=== PATIENT | female | born 1985 | race Caucasian/White ===

== ENCOUNTER → 2018-02-25 18:01 | Outpatient (CLI) | payer OTHER, SELFPAY ==
[2018-02-25 22:58] LABS: Chlamydia Trachomatis by PCR Negative (Negative); Neisserai gonorrhoeae by PCR Negative (Negative); Probe Check PASS; Sample Adequacy Control PASS; Specimen Processing Control PASS
== END ==
PROVIDERS: Visit Provider Obstetrics & Gynecology
DX: Z11.3 Encounter for screening for infections with a predominantly sexual mode of transmission (principal)
CPT/HCPCS: 87491; 87591

== ENCOUNTER → 2018-04-07 09:54 | Outpatient (CLI) | payer OTHER, SELFPAY ==
[2018-04-07 10:49] LABS: Color, Urine Yellow (Yellow); Glucose, Dipstick Normal (Normal); Ketone-Dipstick Negative (Negative); Leukocyte Esterase-Dipstick 25 /ul (Negative); Nitrite-Dipstick Negative (Negative); Occult Blood-Urine 10 /ul (Negative); Protein-Dipstick Negative (Negative); Specific Gravity, Urine 1.015 (1.002-1.030); Urine Bilirubin Dipstick Negative (Negative); Urine Clarity Sl. Cloudy (Clear); Urine Urobilinogen Normal (Normal)
[2018-04-07 11:06] LABS: Amphetamine Urine VISTA NEGATIVE (<1000 ng/mL); Barbiturate Urine VISTA NEGATIVE (< 200 ng/mL); Benzodiazepine Urine VISTA NEGATIVE (< 200 ng/mL); Cocaine Urine VISTA NEGATIVE (< 300 ng/mL); Ecstacy Urine VISTA NEGATIVE (< 500 ng/mL); Methadone Urine VISTA NEGATIVE (< 300 ng/mL); PCP Urine VISTA NEGATIVE (< 25 ng/mL); THC Urine VISTA NEGATIVE (< 50 ng/mL); Vista UDS pH Range 7
[2018-04-07 14:24] LABS: COTININE Drug Screen Negative (<200 ng/mL)
[2018-04-07 15:42] LABS: Absolute Lymphocyte Count 1.38 X10^3/ul (0.83-4.51); Absolute Neutrophil Count 5.3 X10^3/uL (2.0-7.7); Basophil# 0.04 X10^3/uL; Basophil% 0.5 % (0-1); Eosinophil# 0.14 X10^3/uL; Eosinophils% 1.9 % (0-5); Lymphocyte # 1.38 X10^3/ul (4.0); Lymphocyte % 18.4 % (19-41); Mean Corp Hgb Conc 33.3 g/gl (32-36); Mean Corpuscular Volume 87.1 fL (81-99); Mean Platelet Vol. 10.8 fl (6.2-12.0); Monocyte# 0.66 X10^3/uL; Monocyte% 8.8 % (0-10); Neutrophil # 5.28 X10^3/uL (2.7-7.7); Neutrophil % 70.3 % (47-70); Platelet Count 175 K/mm3 (150-450); RBC Distribution Width CV 13.5 % (11.6-14.6); RBC Distribution Width SD 41.8 fl (35.1-43.9); Red Blood Count 4.82 M/mm3 (4.2-5.4); White Blood Count 7.5 K/mm3 (4.4-11.0)
[2018-04-07 15:43] LABS: POSITIVE COUNT NO; POSITIVE DIFFERENTIAL NO; POSITIVE MORPHOLOGY NO
[2018-04-07 16:48] LABS: HIV - WCH Non-Reactive (Nonreactive); Rubella IgG 81.6 IU/mL
[2018-04-09 03:58] LABS: Prenatal RPR NONREACTIVE (NONREACTIVE)
[2018-04-09 13:42] LABS: HEPATITIS B SURFACE AG Negative (Negative); Hep C Antibodies 0.1 s/co ratio (0.0-0.9)
== END ==
PROVIDERS: Visit Provider Obstetrics & Gynecology
DX: Z34.82 Encounter for supervision of other normal pregnancy, second trimester (principal)
CPT/HCPCS: 36415; 80307; 81002; 84443; 85025; 86703; 86762; 86803; 87340

== ENCOUNTER → 2018-07-05 16:22 | Outpatient (CLI) | payer OTHER, SELFPAY ==
[2018-07-05 18:06] LABS: Hematocrit 35.3 % (37-47); Hemoglobin 11.7 g/dl (12.0-15.0); Mean Corp Hgb Conc 33.1 g/gl (32-36); Mean Corpuscular Hgb 29.5 pg (27.0-32.0); Mean Corpuscular Volume 88.9 fL (81-99); Platelet Count 178 K/mm3 (150-450); RBC Distribution Width SD 41.6 fl (35.1-43.9); Red Blood Count 3.97 M/mm3 (4.2-5.4); White Blood Count 8.1 K/mm3 (4.4-11.0)
[2018-07-05 18:09] LABS: Glucose Challenge Gest 1H 50g 154 mg/dL (70-140)
[2018-07-05 18:24] LABS: Scan Indicated on CBC? Y/N NO
== END ==
PROVIDERS: Visit Provider Obstetrics & Gynecology
DX: Z34.83 Encounter for supervision of other normal pregnancy, third trimester (principal)
CPT/HCPCS: 36415; 82950; 85027

== ENCOUNTER → 2018-07-13 07:05 | Outpatient (CLI) | payer OTHER, SELFPAY ==
[2018-07-13 09:24] LABS: Glucose GTT-Gestation. Fasting 69 mg/dL (<105)
[2018-07-13 09:29] LABS: Glucose GTT-Gestational 1 Hr 151 mg/dL (<190)
[2018-07-13 11:21] LABS: Glucose GTT-Gestational 3 Hr 93 L (<145)
[2018-07-13 11:21] LABS: Glucose GTT-Gestational 2 Hr 133 mg/dL (<165)
--- OUTSIDE RECORDS SUMMARY | 2018-08-24 19:53 | XMS RPT_ITS ---
:1985 Author Organization OHIP Care Team Providers Name Role Phone Prince Adams Attending Unavailable Prince Adams Referring Unavailable Prince Adams Attending Unavailable Prince Adams Attending Unavailable Prince Adams Attending Unavailable Prince Adams Referring Unavailable Primay Care Physicia, No Primary Care Unavailable PROBLEMS PROBLEMS DATE TYPE CONDITION / CODE ATTENDING STATUS SOURCE 07/05/2018 Unknown Z34.83 - Encounter Prince Adams for supervision of Community other normal Hospital , third Repository trimester / Z34.83(ICD-10) 04/07/2018 Unknown Z34.82 - Encounter Prince Adams for supervision of Community other normal Hospital , second Repository trimester / Z34.82(ICD-10) 02/26/2018 Unknown Z11.3 - Encounter Prince Adams for screening for Community infections with a Hospital predominantly Repository sexual mode of transmission / Z11.3(ICD-10) PROCEDURES PROCEDURES No Procedure Records FoundRESULTS RESULTS GESTATIONAL GTT 3HR Collected: 07/13/2018 Status: F Source: [place] 100G 7:15 AM [facility] [place] Order Comment: Is Patient Fasting? Y TYPE CODE TESTS RESULT OUT OF RANGE REFERENCE UNITS LAB L501.0650 <105 mg/dL Normal GLU 69 GTT-FASTING Result Comment: GLUCOSE TOLERANCE TEST FOR Reference Interval GESTATIONAL DIABETES Fasting <105 mg/dL 1 hour <190 mg/dl 2 hour <165 mg/dl 3 hour <145 mg/dl LAB L501.0660 <190 mg/dL Normal GLU GTT- 1HR 151 LAB L501.0670 <165 mg/dL Normal GLU GTT- 2HR 133 LAB L501.0680 <145 L Normal GLU GTT- 3HR 93 Performed By: #### L500.4710 #### [facility] [address] [place], [address] GLUCOSE CHALLENGE GEST Collected: 07/05/2018 Status: F Source: [place] 1H 50G 4:20 PM [facility] [place] TYPE CODE TESTS RESULT OUT OF RANGE REFERENCE UNITS LAB L501.0250 70-140 mg/dL High GLU GEST 154 50g 1H Performed By: #### L501.0250 #### [facility] [address] [place], [address] CBC-COMPLETE BLOOD CNT Collected: 07/05/2018 Status: F Source: [place] NO DIFF 4:20 PM [facility] [place] [facility] TYPE CODE TESTS RESULT OUT OF RANGE REFERENCE UNITS LAB L100.1000 4.4-11.0 K/mm3 Normal WBC 8.1 LAB L100.1200 4.2-5.4 M/mm3 Low RBC 3.97 LAB L100.1300 12.0-15.0 g/dl Low HGB 11.7 LAB L100.1400 37-47 % Low HCT 35.3 LAB L100.1500 81-99 fL Normal MCV 88.9 LAB L100.1600 27.0-32.0 pg Normal MCH 29.5 LAB L100.1700 32-36 g/gl Normal MCHC 33.1 LAB L100.1810 11.6-14.6 % Normal RDW CV 13.0 LAB L100.1820 35.1-43.9 fl Normal RDW SD 41.6 LAB L100.1900 150-450 K/mm3 Normal PLT 178 LAB L100.2000 6.2-12.0 fl Normal MPV 11.0 Performed By: #### L100.0500 #### [facility] [address] [place], [place], [id number] URINE DRUG SCREEN Collected: 04/07/2018 Status: F Source: [place] (VISTA) 9:56 AM [facility] [place] [facility] Order Comment: List of Drugs Taken or Suspected? UNK TYPE CODE TESTS RESULT OUT OF RANGE REFERENCE UNITS LAB L505.0075 TO BE Normal CONFIRMED Result Comment: CONFIRMATORY TESTING FOR ALL POSITIVE URINE DRUG SCREEN RESULTS WILL ONLY BE SENT OUT UPON PHYSICIAN ORDER. VISTA Urine Drug Screen methods provide only preliminary analytical test results. A more specific alternate chemical method must be used in order to obtain a confirmed analytical result. Gas chromatography/mass spectrometery (GC/MS) is the preferred confirmatory method. Clinical consideration and professional judgement should be applied to any drug of abuse test result, particularly when preliminary positive results are used. URINE TCA TESTING MUST BE ORDERED SEPARATELY. USE TEST MNEMONIC: UTCA LAB L505.5005 VISTA UDS PH 7 Normal LAB L505.5015 <1000 ng/mL AMPHETAMINES Normal NEGATIVE LAB L505.5025 < 200 ng/mL BARBITIURATES Normal NEGATIVE LAB L505.5035 < 200 ng/mL BENZODIAZIPINE Normal NEGATIVE LAB L505.5045 < 300 ng/mL COCAINE Normal NEGATIVE LAB L505.5055 < 500 ng/mL ECSTACY Normal NEGATIVE LAB L505.5065 < 300 ng/mL METHADONE Normal NEGATIVE LAB L505.5075 < 300 ng/mL OPIATES Normal NEGATIVE LAB L505.5085 < 25 ng/mL PCP Normal NEGATIVE LAB L505.5095 < 50 ng/mL THC Normal NEGATIVE Performed By: #### L505.5000, L505.6240 #### [facility] [address] [place], [place], [address] NICOTINE URINE DRUG Collected: 04/07/2018 Status: F Source: [place] SCREEN 9:56 AM [facility] [place] [facility] Order Comment: List of Drugs Taken or Suspected? UNK TYPE CODE TESTS RESULT OUT OF RANGE REFERENCE UNITS LAB L505.6250 TO BE Normal CONFIRMED Result Comment: CONFIRMATORY TESTING FOR ALL POSITIVE URINE DRUG SCREEN RESULTS WILL ONLY BE SENT OUT UPON PHYSICIAN ORDER. The results of Urine Drug Screen methods provide only preliminary analytical test results. A more specific alternate chemical method must be used in order to obtain a confirmed analytical result. Gas chromatography/mass spectrometery (GC/MS) is the preferred confirmatory method. Clinical consideration and professional judgement should be applied to any drug of abuse test result, particularly when preliminary positive results are used. LAB L505.6270 <200 ng/mL Normal COT DRG Negative SCREEN Result Comment: Cotinine is the first-stage metabolite of Nicotine. Performed By: #### L505.5000, L505.6240 #### [facility] [address] [facility] [place], [address] URINALYSIS, ROUTINE Collected: 04/07/2018 Status: F Source: [place] (DIPSTICK) 9:56 AM [facility] [place] [facility] Order Comment: How was Urine Obtained? Urine, Random TYPE CODE TESTS RESULT OUT OF RANGE REFERENCE UNITS LAB L400.3000 Yellow COLOR Normal Yellow LAB L400.3050 Clear Normal CLARITY Sl. Cloudy LAB L400.3200 Normal mg/dl Normal GLUCOSE, UR Normal LAB L400.3300 Negative mg/dL Normal BILIRUBIN URINE Negative LAB L400.3400 Negative mg/dl Normal KETONE UR Negative LAB L400.3465 1.002-1.030 Normal SP.GR. DIPSTX 1.015 LAB L400.3550 5.0 - 8.0 pH UR Normal 7.0 LAB L400.3600 Negative mg/dl PROT Normal DIPSTX Negative LAB L400.3700 Normal mg/dl Normal UROBILI Normal LAB L400.3750 Negative Normal NITRITE UR Negative LAB L400.3780 Negative /ul High 10 OCCULT BLOOD-UR LAB L400.3800 Negative /ul High LEUK 25 ESTERASE Performed By: #### L400.2010 #### [facility] [address] [place], [place], [address] CBC W/DIFF, AUTOMATED Collected: 04/07/2018 Status: F Source: [place] 9:56 AM [facility] [place] [facility] TYPE CODE TESTS RESULT OUT OF RANGE REFERENCE UNITS LAB L100.1000 4.4-11.0 K/mm3 Normal WBC 7.5 LAB L100.1200 4.2-5.4 M/mm3 Normal RBC 4.82 LAB L100.1300 12.0-15.0 g/dl Normal HGB 14.0 LAB L100.1400 37-47 % Normal HCT 42.0 LAB L100.1500 81-99 fL Normal MCV 87.1 LAB L100.1600 27.0-32.0 pg Normal MCH 29.0 LAB L100.1700 32-36 g/gl Normal MCHC 33.3 LAB L100.1810 11.6-14.6 % Normal RDW CV 13.5 LAB L100.1820 35.1-43.9 fl Normal RDW SD 41.8 LAB L100.1900 150-450 K/mm3 Normal PLT 175 LAB L100.2000 6.2-12.0 fl Normal MPV 10.8 LAB L100.2100 47-70 % High NEUT% 70.3 LAB L100.2200 19-41 % Low LY% 18.4 LAB L100.2300 0-10 % Normal MONO% 8.8 LAB L100.2400 0-5 % Normal EO% 1.9 LAB L100.2500 0-1 % Normal BASO% 0.5 LAB L100.2550 0.0-0.9 % Normal IM GRAN % 0.100 Result Comment: IG% - Immature Granulocytes (promyelocytes, myelocytes and metamyelocytes) > 1% indicates that a LEFT SHIFT is Present. LAB L100.2620 2.0-7.7 X10 3/uL Normal Absolute Neut 5.3 LAB L100.2720 0.83-4.51 X10 3/ul Normal Absolute Lymph 1.38 Performed By: #### L100.0100 #### [facility] [address] [place], [place], [address] THYROID STIM HORMONE Collected: 04/07/2018 Status: F Source: [place] (TSH) 9:56 AM [facility] [place] TYPE CODE TESTS RESULT OUT OF RANGE REFERENCE UNITS LAB L501.9520 0.358-3.74 uIU/mL Normal TSH 1.40 Performed By: #### L501.9520 #### [facility] [address] [place], [address] T AND S-NO Collected: 04/07/2018 Status: F Source: [place] CHARGE W/PNP 9:56 AM [facility] [place] [facility] Order Comment: Reason for Type AND Screen/Red Cells: Surgery? N TYPE CODE TESTS RESULT OUT OF RANGE REFERENCE UNITS LAB B10.0800 O Normal BLOOD POSITIVE TYPE GEL LAB B100.4050 Normal Ab SCREEN NEGATIVE GEL Performed By: #### B100.7550 #### [facility] [address] [place], [address] RUBELLA IGG Collected: 04/07/2018 Status: F Source: [place] 9:56 AM [facility] [place] [facility] TYPE CODE TESTS RESULT OUT OF RANGE REFERENCE UNITS LAB L509.4000 IU/mL Normal Rubella IgG 81.6 Result Comment: Antibody results Interpretation of Immune Status < 5 IU/ml Presumed Non-immune 5 - < 10 IU/ml Equivocal > or = 10 IU/ml Presumed Immune Performed By: #### L509.4000, L3890.6005 #### [facility] [address] [place], [address] HIV - [facility] Collected: 04/07/2018 Status: F Source: [place] 9:56 AM [facility] [place] [facility] TYPE CODE TESTS RESULT OUT OF RANGE REFERENCE UNITS LAB L3890.6005 Nonreactive Normal HIV - [facility] Non-Reactive Performed By: #### L509.4000, L3890.6005 #### [facility] [place], [address] RPR Collected: 04/07/2018 Status: F Source: [place] 9:56 AM [facility] [place] [facility] TYPE CODE TESTS RESULT OUT OF REFERENCE UNITS RANGE LAB L700.5100 NONREACTIVE Normal RPR NONREACTIVE Performed By: #### L700.5100 #### [facility] [address] [place], [address] HEPATITIS B SURFACE Collected: 04/07/2018 Status: F Source: [place] AG 9:56 AM [facility] [place] [facility] TYPE CODE TESTS RESULT OUT OF RANGE REFERENCE UNITS LAB L3100.0400 Negative Normal HB Negative SURF AG Result Comment: Performed at: - [facility] [id number] Photovoltaic Technician: Diego Andrea PhD, Phone: [phone] Performed By: #### L3100.0390, L3100.0625 #### [facility] (refer to report for specific site) refer to report for address and phone number HEPATITIS C ANTIBODIES Collected: 04/07/2018 Status: F Source: [place] 9:56 AM [facility] [place] [facility] TYPE CODE TESTS RESULT OUT OF RANGE REFERENCE UNITS LAB L3100.0650 0.0-0.9 s/co ratio Normal HEP C AB 0.1 Result Comment: Negative: < 0.8 Indeterminate: 0.8 - 0.9 Positive: > 0.9 The CDC recommends that a positive HCV antibody result be followed up with a HCV Nucleic Acid Amplification test (641335). Performed By: #### L3100.0390, L3100.0625 #### [facility] (refer to report for specific site) refer to report for address and phone number PROGRESS Observed: 03/20/2018 Status: COMPLETED Source: [place] 10:55 AM [facility] REPOSITORY HNO ID: [id number] Author: Suzanna Herrera Service: (none) Author Type: Nurse Practitioner Type: Progress Notes Filed: 03/20/2018 10:58 AM Note Text: Subjective HPI Pt presents with 2 day hx dysuria, urinary frequency and urgency. Denies fever, chills, back/abd/flank pain. Currently 12 weeks . Denies vaginal discharge, hematuria, contractions. Review of Systems Constitutional: Negative for chills and fever. Gastrointestinal: Negative for abdominal pain, constipation, diarrhea, nausea and vomiting. Genitourinary: Positive for dysuria, frequency and urgency. Negative for flank pain and hematuria. Musculoskeletal: Negative for back pain and myalgias. Objective Physical Exam Constitutional: She is oriented to person, place, and time and well-developed, well-nourished, and in no distress. No distress. Abdominal: There is no CVA tenderness. Neurological: She is alert and oriented to person, place, and time. Skin: Skin is warm and dry. She is not diaphoretic. BP 108/68 Pulse 70 Temp 36.8 ?C (98.3 ?F) (Tympanic) Wt 54.9 kg (121 lb) LMP 11/30/2017 .Patient presents with: UTI: UTI, urgency and burning X 2 days --12 weeks No past medical history on file. No past surgical history on file. ALLERGIES Penicillins MEDICATIONS butalb/acetaminophen/caffeine (FIORICET ORAL) Take by mouth. PNV no.95/ferrous fum/folic ac ( ORAL) Take by mouth. cephALEXin (KEFLEX) 500 mg capsule Take 1 capsule by mouth three times daily for 7 days. FOR 10 DAYS No family history on file. Social History Substance Use Topics - Smoking status: Never Smoker - Smokeless tobacco: Never Used - Alcohol use Not on file ASSESSMENT/PLAN: 1. Dysuria - ICD9: 788.1, ICD10: R30.0 acute - UA positive for gilma esterase and nitrates - Send urine for culture - Patient education for prevention given - URINE CULTURE - CEPHALEXIN 500 MG CAPSULE - UA DIP B/O Reviewed and printed UTI education. Encouraged to notify CHEF CONCIERGE Thursday that she was treated for a UTI. Pt agreeable. The patient is instructed to return or seek emergency treatment if symptoms become worse or with any acute change in condition. The patient verbalizes understanding and is in agreement with plan of care. Suzanna Herrera CNP Observed: 03/20/2018 Status: F Source: [place] URINE CULTURE 10:[address] [facility] REPOSITORY Sp. Request/Comment: - Specimen received in preservative Culture Result - >=100,000 CFU/ml Escherichia coli --> ABNORMAL ALERT ORGANISM: Escherichia coli METHOD: Minimum inhibitory concentration(Vitek) Antibiotic Interp ANTONIA Status Ampicillin SUSCEPTIBLE <=2 F Gentamicin SUSCEPTIBLE <=1 F Trimeth sulfameth SUSCEPTIBLE <=20 F Cefazolin SUSCEPTIBLE <=4 F CLSI breakpoints for therapy of uncomplicated UTI's due to E.coli, K.pneumoniae, and P.mirabilis were applied and may be used to predict the activity of oral agents(cefaclor, cefdinir, cefpodoxime, cefp rozil, cefuroxime, cephalexin, loracarbef). Ciprofloxacin SUSCEPTIBLE <=0.25 F Nitrofurantoin SUSCEPTIBLE <=16 F Cefepime SUSCEPTIBLE <=1 F Piperacillin/Tazobac SUSCEPTIBLE <=4 F Ampicillin Sulbact SUSCEPTIBLE <=2 F Ceftriaxone SUSCEPTIBLE <=1 F Meropenem SUSCEPTIBLE <=0.25 F Ertapenem SUSCEPTIBLE <=0.5 F Performed By: #### ANTOINETTE #### [facility] [address] [place], [place] [address] CNOV Observed: 03/20/2018 Status: COMPLETED Source: [place] 10:[address] [facility] REPOSITORY Office Visit (WSTR) MEGHNA RUIZ ([id number]) 1985 F Date Time Provider Department 03/20/18 10:15 AM SUZANNA [facility] During your visit today, we recorded the following information about you: Temperature Pulse Blood pressure Weight 98.3 degrees 70/minute 108/68 54.9 kg Suzanna Herrera APRN.CNP 03/20/2018 10:45 AM Signed Patient Education for Female Urinary Tract Infections Possible complications: Pyelonehritis Renal abscess Expected course/prognosis: * symptoms resolve within 2-3 days after starting treatment in almost all patients * one-fourth of women with simple UTI experience a second UTI within 6 months, and half at some time during lifetime. * patients with multiple recurrent UTI and no underlying urinary tract abnormality may receive long-term prophylactic antibioitic treatment. Trimethoprim-sulfamethoxazole and nitrofurantoin common used. * women with frequent or intercourse-related UTI should empty bladder immediately before and following intercourse and consider postcoital antibiotic treament Instructions: * Maintain good hydration * Avoid sexual intercourse when symptoms present *Take antibiotic as directed * Return if symptoms not resolved or markedly improved within 48 hours * Return if fever, chills, or flank pain develop * If taking prophylactic antiobiotics, take at bedtime * Take showers instead of tub baths * Avoid feminine hygiene sprays and scented douches * Wipe urethra from front to back Please call or return to the office if you are not feeling better in 5-7 days. You can try taking OTC Uristat (pyridium) if needed for burning. Beware that it will turn your urine orange/red. Suzanna Herrera APRN.IMTIAZ 03/20/2018 10:58 AM Signed Subjective HPI Pt presents with 2 day hx dysuria, urinary frequency and urgency. Denies fever, chills, back/abd/flank pain. Currently 12 weeks . Denies vaginal discharge, hematuria, contractions. Review of Systems Constitutional: Negative for chills and fever. Gastrointestinal: Negative for abdominal pain, constipation, diarrhea, nausea and vomiting. Genitourinary: Positive for dysuria, frequency and urgency. Negative for flank pain and hematuria. Musculoskeletal: Negative for back pain and myalgias. Objective Physical Exam Constitutional: She is oriented to person, place, and time and well-developed, well-nourished, and in no distress. No distress. Abdominal: There is no CVA tenderness. Neurological: She is alert and oriented to person, place, and time. Skin: Skin is warm and dry. She is not diaphoretic. BP 108/68 Pulse 70 Temp 36.8 ?C (98.3 ?F) (Tympanic) Wt 54.9 kg (121 lb) LMP 11/30/2017 .Patient presents with: UTI: UTI, urgency and burning X 2 days --12 weeks No past medical history on file. No past surgical history on file. ALLERGIES Penicillins MEDICATIONS butalb/acetaminophen/caffeine (FIORICET ORAL) Take by mouth. PNV no.95/ferrous fum/folic ac ( ORAL) Take by mouth. cephALEXin (KEFLEX) 500 mg capsule Take 1 capsule by mouth three times daily for 7 days. FOR 10 DAYS No family history on file. Social History Substance Use Topics - Smoking status: Never Smoker - Smokeless tobacco: Never Used - Alcohol use Not on file ASSESSMENT/PLAN: 1. Dysuria - ICD9: 788.1, ICD10: R30.0 acute - UA positive for gilma esterase and nitrates - Send urine for culture - Patient education for prevention given - URINE CULTURE - CEPHALEXIN 500 MG CAPSULE - UA DIP B/O Reviewed and printed UTI education. Encouraged to notify CHEF CONCIERGE Thursday that she was treated for a UTI. Pt agreeable. The patient is instructed to return or seek emergency treatment if symptoms become worse or with any acute change in condition. The patient verbalizes understanding and is in agreement with plan of care. IMTIAZ Zhang APRN.CNP 03/20/2018 3:01 PM Signed Addended by: SUZANNA HERRERA CNP on: 03/20/2018 03:01 PM Modules accepted: Orders Referring Provider: SELF [200] Allergies As of Date: 03/20/2018 Noted Allergy Reaction PENICILLINS 05/07/2015 16 - Unknown Date Reviewed: 03/20/2018 Reviewed by: Kimberlee Macias Ma - Fully Assessed Reason for Visit: UTI [116] Cmt: UTI, urgency and burning X 2 days --12 weeks Reason For Visit History Recorded Primary Visit Diagnosis:Dysuria [R30.0] Order(s):URINE CULTURE [SQURCUL] Order #: [id number] UA DIP B/O [[id number]] Order #: [id number] cephALEXin (KEFLEX) 500 mg capsuleTake 1 capsule by mouth twice daily for 7 days. FOR 10 DAYSDisp: 14 capsuleRfl: 0 Prescriptions as of 03/20/2018 Sig: FIORICET ORAL Take by mouth. ORAL Take by mouth. CEPHALEXIN 500 MG CAPSULE Take 1 capsule by mouth twice* Problem List As Of Date: 03/20/2018 (None) Other instructions from your clinician: Patient Education for Female Urinary Tract Infections Possible complications: Pyelonehritis Renal abscess Expected course/prognosis: * symptoms resolve within 2-3 days after starting treatment in almost all patients * one-fourth of women with simple UTI experience a second UTI within 6 months, and half at some time during lifetime. * patients with multiple recurrent UTI and no underlying urinary tract abnormality may receive long-term prophylactic antibioitic treatment. Trimethoprim-sulfamethoxazole and nitrofurantoin common used. * women with frequent or intercourse-related UTI should empty bladder immediately before and following intercourse and consider postcoital antibiotic treament Instructions: * Maintain good hydration * Avoid sexual intercourse when symptoms present *Take antibiotic as directed * Return if symptoms not resolved or markedly improved within 48 hours * Return if fever, chills, or flank pain develop * If taking prophylactic antiobiotics, take at bedtime * Take showers instead of tub baths * Avoid feminine hygiene sprays and scented douches * Wipe urethra from front to back Please call or return to the office if you are not feeling better in 5-7 days. You can try taking OTC Uristat (pyridium) if needed for burning. Beware that it will turn your urine orange/red. Prescriptions ordered this encounter Disp Refills Start End CEPHALEXIN 500 MG CAPSULE 21 c* 0 03/20/2018 03/20/2018 Route: ORAL Sig: Take 1 capsule by mouth three times daily for 7 days. FOR 10 DAYS Disc: Erroneous entry CEPHALEXIN 500 MG CAPSULE 14 c* 0 03/20/2018 03/27/2018 Class: Med Update Route: ORAL Sig: Take 1 capsule by mouth twice daily for 7 days. FOR 10 DAYS Medications Discontinued During This Encounter cephALEXin (KEFLEX) 500 mg capsule 21 c* 0 03/20/2018 03/20/2018 Route: ORAL Sig: Take 1 capsule by mouth three times daily for 7 days. FOR 10 DAYS Disc: Erroneous entry Encounter Status:Closed by SUZANNA HERRERA CNP on 03/20/18 CT/NG [facility] BY PCR Collected: 02/25/2018 Status: F Source: [place] 4:00 PM [facility] [place] TYPE CODE TESTS RESULT OUT OF RANGE REFERENCE UNITS LAB L8200.2100 Negative Normal Chlam Negative Trac PCR LAB L8200.2200 Negative Normal NG by Negative PCR Performed By: #### L8200.2000 #### [facility] [address] [place], [address] Observed: 11/30/2017 Status: F Source: [place] URINE CULTURE 5:[address] [facility] REPOSITORY Sp. Request/Comment: - Specimen received in preservative Culture Result - 10,000 - <50,000 CFU/ml Escherichia coli --> ABNORMAL ALERT ORGANISM: Escherichia coli METHOD: Minimum inhibitory concentration(Vitek) Antibiotic Interp ANTONIA Status Ampicillin SUSCEPTIBLE <=2 F Gentamicin SUSCEPTIBLE <=1 F Trimeth sulfameth SUSCEPTIBLE <=20 F Cefazolin SUSCEPTIBLE <=4 F CLSI breakpoints for therapy of uncomplicated UTI's due to E.coli, K.pneumoniae, and P.mirabilis were applied and may be used to predict the activity of oral agents(cefaclor, cefdinir, cefpodoxime, cefp rozil, cefuroxime, cephalexin, loracarbef). Ciprofloxacin SUSCEPTIBLE <=0.25 F Nitrofurantoin SUSCEPTIBLE <=16 F Cefepime SUSCEPTIBLE <=1 F Piperacillin/Tazobac SUSCEPTIBLE <=4 F Ampicillin Sulbact SUSCEPTIBLE <=2 F Ceftriaxone SUSCEPTIBLE <=1 F Meropenem SUSCEPTIBLE <=0.25 F Ertapenem SUSCEPTIBLE <=0.5 F Performed By: #### URCUL #### [facility] [address] [place], [place] [address] PROGRESS Observed: 11/30/2017 Status: COMPLETED Source: [place] 5:26 PM [facility] REPOSITORY HNO ID: [id number] Author: Alma (Imtiaz) Fan Service: (none) Author Type: Nurse Practitioner Type: Progress Notes Filed: 11/30/2017 7:31 PM Note Text: Subjective HPI HPI Meghna Ruiz is a 32 year old female who presents today for CC of burning AND frequency with urination. This started Thursday She is currently on menstrual cycle Symptoms are worsened by voiding she has tried no treatment or medication Risk factors sexually active. PMH she was treated on 11/17 with macrobid for a UTI, stopped medication early due to flu BP 108/66 Pulse 64 Temp 36.1 ?C (96.9 ?F) (Tympanic) Resp 14 Wt 54.9 kg (121 lb) LMP 11/30/2017 ALLERGIES Allergen Reactions - Penicillins Unknown There is no problem list on file for this patient. No family history on file. Social History Marital status: Spouse name: Years of education: Number of children: Social History Main Topics Smoking status: Never Smoker Smokeless status: Never Used Review of Systems Constitutional: Negative for chills, fever and malaise/fatigue. Gastrointestinal: Positive for abdominal pain. Negative for diarrhea. Genitourinary: Positive for dysuria, flank pain and urgency. Negative for frequency and hematuria. Skin: Negative for rash. Neurological: Negative for headaches. Physical Exam Constitutional: She is oriented to person, place, and time and well-developed, well-nourished, and in no distress. HENT: Head: Normocephalic and atraumatic. Eyes: Conjunctivae and EOM are normal. Pupils are equal, round, and reactive to light. Neck: Normal range of motion. Neck supple. Pulmonary/Chest: Effort normal. Abdominal: Soft. Normal appearance and bowel sounds are normal. There is no hepatosplenomegaly. There is tenderness in the suprapubic area. There is no rigidity, no rebound, no guarding, no CVA tenderness, no tenderness at McBurney's point and negative Ruelas's sign. Neurological: She is alert and oriented to person, place, and time. Skin: Skin is warm. Psychiatric: Affect normal. Nursing note and vitals reviewed. Component Latest Ref Rng AND Units 11/30/2017 Glucose, Urine Neg mg/dL NEG Bilirubin, Urine Neg NEG Ketones, Urine Neg NEG Specific [place], Ur 1.005 - 1.030 1.005 Hemoglobin/Blood,Ur Neg LARGE pH, Urine 4.5 - 8.0 7.5 Protein, Urine Neg mg/dL NEG Urobilinogen, Urine Normal (<1.1) EU 0.2 Nitrites Neg NEG Leukocytes Neg MODERATE Color/Appearance comment: DARK YELLOW Quality Check yes/no Yes ASSESSMENT/PLAN: 1. Acute cystitis with hematuria - ICD9: 595.0, ICD10: N30.01 (primary diagnosis) Urinary tract infection (UTI) We will send the urine for culture, which shows us what organism, if any, we are treating. If we need to change the antibiotic coverage, you will receive a call in 48-72 hours. * Seek medical care immediately, call 911, or go to ER if you have high fevers, severe flank or low back pain, blood in your urine. * Follow up with primary care provider if symptoms persist or worsen. - SULFAMETHOXAZOLE 800 MG-TRIMETHOPRIM 160 MG TABLET 2. Burning with urination - ICD9: 788.1, ICD10: R30.0 acute - UA positive for gilma esterase and hematuria - Send urine for culture - Begin treatment with Bactrim DS BID for 3 days - Patient education for prevention given - UA DIP B/O - URINE CULTURE Diagnosis and treatment plan were discussed and questions were answered to the patient's satisfaction. Pt acknowledged understanding of concepts and follow up plan. Specific signs and symptoms that would indicate the need for higher level of care were discussed in detail warranting prompt ER evaluation. Alma Chavira APRN.BUNGHOLE BORER CNOV Observed: 11/30/2017 Status: COMPLETED Source: [place] 5:15 PM [facility] Office Visit (UCWSTR) MEGHNA RUIZ ([id number]) 1985 F Date Time Provider Department 11/30/17 5:15 PM ALMA CHAVIRA ([facility]) [facility] During your visit today, we recorded the following information about you: Temperature Pulse Respiration Blood pressure 96.9 degrees 64/minute 14/minute 108/66 Weight Last Period 54.9 kg 11/30/17 Alma Chavira APRN.[facility] 11/30/2017 7:31 PM Addendum Subjective HPI HPI Meghna Ruiz is a 32 year old female who presents today for CC of burning ANDamp; frequency with urination. This started Thursday She is currently on menstrual cycle Symptoms are worsened by voiding she has tried no treatment or medication Risk factors sexually active. PMH she was treated on 11/17 with macrobid for a UTI, stopped medication early due to flu BP 108/66 Pulse 64 Temp 36.1 ?C (96.9 ?F) (Tympanic) Resp 14 Wt 54.9 kg (121 lb) LMP 11/30/2017 ALLERGIES Allergen Reactions - Penicillins Unknown There is no problem list on file for this patient. No family history on file. Social History Marital status: Spouse name: Years of education: Number of children: Social History Main Topics Smoking status: Never Smoker Smokeless status: Never Used Review of Systems Constitutional: Negative for chills, fever and malaise/fatigue. Gastrointestinal: Positive for abdominal pain. Negative for diarrhea. Genitourinary: Positive for dysuria, flank pain and urgency. Negative for frequency and hematuria. Skin: Negative for rash. Neurological: Negative for headaches. Physical Exam Constitutional: She is oriented to person, place, and time and well-developed, well-nourished, and in no distress. HENT: Head: Normocephalic and atraumatic. Eyes: Conjunctivae and EOM are normal. Pupils are equal, round, and reactive to light. Neck: Normal range of motion. Neck supple. Pulmonary/Chest: Effort normal. Abdominal: Soft. Normal appearance and bowel sounds are normal. There is no hepatosplenomegaly. There is tenderness in the suprapubic area. There is no rigidity, no rebound, no guarding, no CVA tenderness, no tenderness at McBurney's point and negative Ruelas's sign. Neurological: She is alert and oriented to person, place, and time. Skin: Skin is warm. Psychiatric: Affect normal. Nursing note and vitals reviewed. Component Latest Ref Rng ANDamp; Units 11/30/2017 Glucose, Urine Neg mg/dL NEG Bilirubin, Urine Neg NEG Ketones, Urine Neg NEG Specific [place], Ur 1.005 - 1.030 1.005 Hemoglobin/Blood,Ur Neg LARGE pH, Urine 4.5 - 8.0 7.5 Protein, Urine Neg mg/dL NEG Urobilinogen, Urine Normal (ANDlt;1.1) EU 0.2 Nitrites Neg NEG Leukocytes Neg MODERATE Color/Appearance comment: DARK YELLOW Quality Check yes/no Yes ASSESSMENT/PLAN: 1. Acute cystitis with hematuria - ICD9: 595.0, ICD10: N30.01 (primary diagnosis) Urinary tract infection (UTI) We will send the urine for culture, which shows us what organism, if any, we are treating. If we need to change the antibiotic coverage, you will receive a call in 48-72 hours. * Seek medical care immediately, call 911, or go to ER if you have high fevers, severe flank or low back pain, blood in your urine. * Follow up with primary care provider if symptoms persist or worsen. - SULFAMETHOXAZOLE 800 MG-TRIMETHOPRIM 160 MG TABLET 2. Burning with urination - ICD9: 788.1, ICD10: R30.0 acute - UA positive for gilma esterase and hematuria - Send urine for culture - Begin treatment with Bactrim DS BID for 3 days - Patient education for prevention given - UA DIP B/O - URINE CULTURE Diagnosis and treatment plan were discussed and questions were answered to the patient's satisfaction. Pt acknowledged understanding of concepts and follow up plan. Specific signs and symptoms that would indicate the need for higher level of care were discussed in detail warranting prompt ER evaluation. Alma Chavira APRN.IMTIAZ Chavira APRN.IMTIAZ 11/30/2017 5:35 PM Signed ASSESSMENT/PLAN: 1. Acute cystitis with hematuria - ICD9: 595.0, ICD10: N30.01 (primary diagnosis) Urinary tract infection (UTI) We will send the urine for culture, which shows us what organism, if any, we are treating. If we need to change the antibiotic coverage, you will receive a call in 48-72 hours. * Seek medical care immediately, call 911, or go to ER if you have high fevers, severe flank or low back pain, blood in your urine. * Follow up with primary care provider if symptoms persist or worsen. - SULFAMETHOXAZOLE 800 MG-TRIMETHOPRIM 160 MG TABLET 2. Burning with urination - ICD9: 788.1, ICD10: R30.0 acute - UA positive for gilma esterase and hematuria - Send urine for culture - Begin treatment with Bactrim DS BID for 3 days - Patient education for prevention given - UA DIP B/O - URINE CULTURE Referring Provider: SELF [200] Allergies As of Date: 11/30/2017 Noted Allergy Reaction PENICILLINS 05/07/2015 16 - Unknown Date Reviewed: 11/30/2017 Reviewed by: Karina Jara Ma - Fully Assessed Reason for Visit: Urinary Problem [252] Cmt: burning with urination, strong urine x 2 days was on macrobid stopped medication due to flu treated online Primary Visit Diagnosis:Acute cystitis with hematuria [N30.01] Other Visit Diagnosis:Burning with urination [R30.0] Order(s):UA DIP B/O [7864220] Order #: [id number] URINE CULTURE [SQURCUL] Order #: [id number] sulfamethoxazole-trimethoprim (BACTRIM DS) 800-160 mg per tabletTake 1 tablet by mouth twice daily for 3 days.Disp: 6 tabletRfl: 0 Prescriptions as of 11/30/2017 Sig: ORAL Take by mouth. SULFAMETHOXAZOLE 800 MG-TRIME* Take 1 tablet by mouth twice * Problem List As Of Date: 11/30/2017 (None) Other instructions from your clinician: ASSESSMENT/PLAN: 1. Acute cystitis with hematuria - ICD9: 595.0, ICD10: N30.01 (primary diagnosis) Urinary tract infection (UTI) We will send the urine for culture, which shows us what organism, if any, we are treating. If we need to change the antibiotic coverage, you will receive a call in 48-72 hours. * Seek medical care immediately, call 911, or go to ER if you have high fevers, severe flank or low back pain, blood in your urine. * Follow up with primary care provider if symptoms persist or worsen. - SULFAMETHOXAZOLE 800 MG-TRIMETHOPRIM 160 MG TABLET 2. Burning with urination - ICD9: 788.1, ICD10: R30.0 acute - UA positive for gilma esterase and hematuria - Send urine for culture - Begin treatment with Bactrim DS BID for 3 days - Patient education for prevention given - UA DIP B/O - URINE CULTURE Prescriptions ordered this encounter Disp Refills Start End SULFAMETHOXAZOLE 800 MG-TRIMETHOPRIM* 6 ta* 0 11/30/2017 12/03/2017 Route: ORAL Sig: Take 1 tablet by mouth twice daily for 3 days. Encounter Status:Closed by ALMA CHAVIRA CNP on 11/30/17 PROGRESS Observed: 11/13/2017 Status: COMPLETED Source: [place] 2:[address] [facility] REPOSITORY [facility] ID: [id number] Author: Sharona Walker Provider Service: (none) Author Type: Physician Type: Progress Notes Filed: 11/13/2017 10:31 AM Note Text: null (CCF:Not available AMW:[id number]) Visit Summary for Meghna Ruiz - Gender: Female - Date of : 1985 ( ) Date: [id number] - Duration: 5 minutes Patient: Meghna Ruiz Provider: Ivania Perry Patient Contact Information Address [address] [place] [address] [phone] Visit Topics UTI [Added By: Self - 2017-11-13] Triage Questions Please provide your current address. We need this on file in case of a medical emergency.Answer [[address] [address]] Conversation Transcripts [Notification] PO Sauer, will help you prepare for your visit. She is assisting Ivania Perry, Family Physician.[Any Plata] Vancelo and thank you for connecting, Dr. Bennett is currently finishing with another patient, may I answer any questions regarding the service before your visit?[Meghna Ruiz] I parul??t believe so. Thank you![Any Plata] Thank you for your patience, she will be with you as soon as possible. [Meghna Ruiz] Great![Notification] Any Plata has left the room.[Notification] You are connected with Ivania Perry, Family Physician.[Notification] Meghna Ruiz is located in [place].[Notification] Meghna Ruiz has shared health history... Diagnosis Acute cystitis with hematuria Value: N30.01 Code: ICD-10-CM Procedures Value: 91727 Code: CPT-4 ONLINE E/M BY PHYS/QHP Medications Prescribed nitrofurantoin monohyd/m-cryst Dose : 1 capsule Strength : 100 mg Route : oral Frequency : 2 times a day. Until directed to stop. Refills : 0 Instructions to the Pharmacist : Substitutions allowed Provider Notes We strongly encourage you to share the following record of today's visit with your primary care physician. Mode of communication: Video HPI: Patient reports symptoms of a UTI for the last 3 days including: Burning, frequency and urgency of urination. Small drops of blood with urination. No fever, back pain or severe abdominal pain. No vaginal discharge. No concern for gc/ct or - LMP 11/05/17. PMH: nonePrevious HX UTIs: yes, about 3 years ago Meds: vitamin Allergies: Penicillin LMP: 11/05/17Assessment: Urinary Tract InfectionCode N30.01 acute cystitis with hematuria Plan: 1.Medication as described below. 2.Discussed options and precautions3.Recommend increased fluids, cranberry juice4.You may consider using the xfgm-dmc-gbzisgg medication called phenazopyridine (the commercial name can be Azo, Pyridium or Uristat) for your urinary pain. Please note, this medication can cause urine to be red/orange in color and could discolor contact lenses - so be aware of that possibility.Antibiotic indication: urinary symptoms consistent with uncomplicated UTIAntibiotic chosen for the following reason: nitrofurantoin - 1st line therapyFollow-up: 1.Follow up in 2-3 days if not improving 2.If a medication was prescribed and there are any questions or problems with the prescription, please call [phone] for assistance. 3.If your symptoms are worse in any way (i.e. you develop fever, vomiting, back pain, difficulty urinating) or if your symptoms are not improving after being on antibiotics for 48 hours, then you will need to seek in person care either with your primary care provider or at your closest urgent care clinic.4.Taking a probiotic (either in pill form or by eating yogurt that contains probiotics) while using antibiotics can help prevent some of the troublesome side effects that antibiotics can sometimes cause.5.Please print a copy of this note and provide it to your regular doctor so it may be included in your medical record. Patient voiced understanding and agreement with plan.Please be sure to see your PCP on an annual basis. Electronically signed by: Ivania Perry( ) ALLERGIES ALLERGIES DATE TYPE / CODE NAME / CODE REACTION SEVERITY SOURCE 10/24/2016 Drug amoxicillin/F006 Unknown Unknown [place] [facility][id number]( [facility]77[facility] 10/24/2016 Miscellaneous moris Rash Unknown [place] [facility]403004[facility] 05/07/2015 Drug PENICILLINS UNKNOWN [place] Class/[id number]([facility] OME CT) [place] Repository ENCOUNTERS ENCOUNTERS ADMIT/DISCHARGE ACCOUNT ADMITTING ENCOUNTER LOCATION SOURCE NUMBER CLASS 07/13/2018 [id number] [facility] ing:LAB Repository 07/05/2018 [id number] [facility] ing:WOBLAB Repository 04/07/2018 [id number] [facility] ing:WOBLAB Repository 03/20/2018/03/22/20 [id number] [address] Repository 02/25/2018 [id number] [facility] ing:LABSPEC Repository 11/30/2017/12/02/[id number] Repository PAYERS PAYERS ENCOUNTER GUARANTOR PAYER SUBSCRIBER SOURCE 07/13/2018 MEGHNA KESSLEROB: Shari [id number] [place] Insurance:[id number] [address]Lsk: (330) Number: Repository [phone] () [id number] Date:[id number] [address] [address]TI: 07/13/2018 Secondary NOT GIVENUNK [place] Insurance:SELF PAY [facility] Number: Effective Repository Date:2018-07-07 07/05/2018 Meghna Primary CELESTINO N KLINEDOB: [place] [id number] Insurance:MEDICAL [id number] [facility] [address]Djp: [phone]) Number: Repository [phone] () [id number] Date:[id number] [address] [address]JG: 07/05/2018 Secondary NOT GIVENUNK Sh[place] Insurance:SELF PAY [facility] Number: Effective Repository Date:2018-07-05 04/07/2018 Meghna Primary CELESTINO N KLINEDOB: Shari [id number] Insurance:MEDICAL [id number] [facility] [address]Ucc: (330) Number: Repository [phone] () [id number] Date:9312-11-44ZA [address] [address]DH: 04/07/2018 Secondary NOT GIVENUNK Shari Insurance:SELF PAY [facility] Number: Effective Repository Date:2018-04-07 02/25/2018 Meghna Primary CELESTINO N KLINEDOB: Shari [id number] [place] Insurance:MEDICAL [id number] [facility] [address]Wyi: (330) Number: Repository [phone] () [id number] Date:[id number] [address] [address]AZ: 02/25/2018 Secondary NOT GIVENUNK [place] Insurance:SELF PAY [facility] Number: Effective Repository Date:2018-02-25
== END ==
PROVIDERS: Referring Provider Obstetrics & Gynecology; Visit Provider Obstetrics & Gynecology
DX: O99.810 Abnormal glucose complicating pregnancy (principal); Z3A.00 Weeks of gestation of pregnancy not specified
CPT/HCPCS: 36415; 82951; 82952

== ENCOUNTER → 2018-09-08 13:16 | Outpatient (CLI) | payer OTHER, SELFPAY ==
--- OUTSIDE RECORDS SUMMARY | 2018-11-10 12:20 | XMS RPT_ITS ---
:1985 Author Organization OHIP Care Team Providers Name Role Phone Prince Adams Attending Unavailable Primay Care Physicia, No Primary Care Unavailable Prince Adams Attending Unavailable Prince Adams Referring Unavailable Prince Adams Attending Unavailable Prince Admas Attending Unavailable Prince Adams Attending Unavailable Prince Adams Referring Unavailable Primay Care Physicia, No Primary Care Unavailable PROBLEMS PROBLEMS DATE TYPE CONDITION / CODE ATTENDING STATUS SOURCE 09/08/2018 Unknown Z36.85 - Encounter Prince Adams Active Shari for Community screening for Hospital Streptococcus B / Repository Z36.85(ICD-10) 07/05/2018 Unknown Z34.83 - Encounter Prince Adams Active Shari for supervision of Community other normal Hospital , third Repository trimester / Z34.83(ICD-10) 04/07/2018 Unknown Z34.82 - Encounter Prince Adams Active Shari for supervision of Community other normal Hospital , second Repository trimester / Z34.82(ICD-10) 02/26/2018 Unknown Z11.3 - Encounter Prince Adams Rodrick Mccarthy for screening for Community infections with a Hospital predominantly Repository sexual mode of transmission / Z11.3(ICD-10) PROCEDURES PROCEDURES No Procedure Records FoundRESULTS RESULTS Observed: 09/08/2018 Status: F Source: [place]ARI CULTURE, GROUP B 9:45 AM [facility] STREPTOCOCCUS REPOSITORY Comments: VAGINAL/RECTAL EDITA Culture Group B Beta Streptococcus is not isolated. Performed By: #### M100.1800 #### [facility] [address] [place], [address] GESTATIONAL GTT 3HR Collected: 07/13/2018 Status: F Source: SHARI 100G 7:15 AM [facility] REPOSITORY Order Comment: Is Patient Fasting? Y [...] 3HR 93 Performed By: #### L500.4710 #### [facility] [address] [place], [address] GLUCOSE CHALLENGE GEST Collected: 07/05/2018 Status: F Source: SHARI 1H 50G 4:20 PM [facility] REPOSITORY TYPE CODE TESTS RESULT OUT OF RANGE REFERENCE UNITS LAB L501.0250 70-140 mg/dL High GLU GEST 154 50g 1H Performed By: #### L501.0250 #### [facility] [address] [place], [address] CBC-COMPLETE BLOOD CNT Collected: 07/05/2018 Status: F Source: [place]ARI NO DIFF 4:20 PM [facility] REPOSITORY TYPE CODE TESTS RESULT OUT OF [...] MPV 11.0 Performed By: #### L100.0500 #### [facility] [address] [place], [address] URINE DRUG SCREEN Collected: 04/07/2018 Status: F Source: [place]ARI (TATYANA) 9:56 AM [facility] REPOSITORY Order Comment: List of Drugs Taken [...] NEGATIVE Performed By: #### L505.5000, L505.6240 #### [facility] [address] [place], [place], [address] NICOTINE URINE DRUG Collected: 04/07/2018 Status: F Source: [place]ARI SCREEN 9:56 AM [facility] REPOSITORY Order Comment: List of Drugs Taken [...] Nicotine. Performed By: #### L505.5000, L505.6240 #### [facility] [address] [place], [place], [address] URINALYSIS, ROUTINE Collected: 04/07/2018 Status: F Source: SHARI (DIPSTICK) 9:56 AM [facility] REPOSITORY Order Comment: How was Urine Obtained? [...] High LEUK 25 ESTERASE Performed By: #### L400.2011 #### [facility] [address] [place], [address] CBC W/DIFF, AUTOMATED Collected: 04/07/2018 Status: F Source: [place] 9:56 AM [facility] REPOSITORY TYPE CODE TESTS RESULT OUT OF [...] Lymph 1.38 Performed By: #### L100.0100 #### [facility] [address] [facility] [address] THYROID STIM HORMONE Collected: 04/07/2018 Status: F Source: SHARI (TSH) 9:56 AM [facility] REPOSITORY TYPE CODE TESTS RESULT OUT OF RANGE REFERENCE UNITS LAB L501.9520 0.358-3.74 uIU/mL Normal TSH 1.40 Performed By: #### L501.9520 #### [facility] [address] [facility] [address] T AND S-NO Collected: 04/07/2018 Status: F Source: SHARI CHARGE W/PNP 9:56 AM [facility] REPOSITORY Order Comment: Reason for Type AND Screen/Red Cells: Surgery? N TYPE CODE TESTS RESULT OUT OF RANGE REFERENCE UNITS LAB B10.0800 O Normal BLOOD POSITIVE TYPE GEL LAB B100.4050 Normal Ab SCREEN NEGATIVE GEL Performed By: #### B100.7550 #### [facility] [address] [facility] [id number] RUBELLA IGG Collected: 04/07/2018 Status: F Source: SHARI 9:56 AM [facility] REPOSITORY TYPE CODE TESTS RESULT OUT OF RANGE REFERENCE UNITS LAB L509.4000 IU/mL Normal Rubella IgG 81.6 Result Comment: Antibody results Interpretation of Immune Status < 5 IU/ml Presumed Non-immune 5 - < 10 IU/ml Equivocal > or = 10 IU/ml Presumed Immune Performed By: #### L509.4000, L3890.6005 #### [facility] [address] [place], [place], [address] HIV - H Collected: 04/07/2018 Status: F Source: [facility]ARI 9:56 AM [facility] TYPE CODE TESTS RESULT OUT OF RANGE REFERENCE UNITS LAB L3890.6005 Nonreactive Normal HIV - [facility] Non-Reactive Performed By: #### L509.4000, L3890.6005 #### [facility] [address] [place], [place], [address] RPR Collected: 04/07/2018 Status: F Source: [place] 9:56 AM [facility] REPOSITORY TYPE CODE TESTS RESULT OUT OF REFERENCE UNITS RANGE LAB L700.5100 NONREACTIVE Normal RPR NONREACTIVE Performed By: #### L700.5100 #### [facility] [address] [place], [place], [address] HEPATITIS B SURFACE Collected: 04/07/2018 Status: F Source: SHARI AG 9:56 AM [facility] REPOSITORY TYPE CODE TESTS RESULT OUT OF RANGE REFERENCE UNITS LAB L3100.0400 Negative Normal HB Negative SURF AG Result Comment: Performed at: [facility] [id number] Treating Plant Supervisor: Diego Andrea PhD, Phone: [phone] Performed By: #### L3100.0390, L3100.0625 #### [facility] (refer to report for specific site) refer to report for address and phone number HEPATITIS C ANTIBODIES Collected: 04/07/2018 Status: F Source: [place] 9:56 AM [facility] REPOSITORY TYPE CODE TESTS RESULT OUT OF RANGE REFERENCE UNITS LAB L3100.0650 0.0-0.9 s/co ratio Normal HEP C AB 0.1 Result Comment: Negative: < 0.8 Indeterminate: 0.8 - 0.9 Positive: > 0.9 The CDC recommends that a positive HCV antibody result be followed up with a HCV Nucleic Acid Amplification test (615099). Performed By: #### L3100.0390, L3100.0625 #### [facility] (refer to report for specific site) refer to report for address and phone number PROGRESS Observed: 03/20/2018 Status: COMPLETED Source: [place] 10:55 AM [facility] REPOSITORY HNO ID: [id number] Author: Suzanna Herrera Service: (none) Author Type: [...] and printed UTI education. 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 Pt agreeable. The patient is instructed to return or seek emergency treatment if symptoms become worse or with any acute change in condition. The patient verbalizes understanding and is in agreement with plan of care. Suzanna Herrera CNP Observed: 03/20/2018 Status: F Source: [place] URINE CULTURE 10:55 AM [facility] REPOSITORY Sp. Request/Comment: - Specimen received [...] <=0.5 F Performed By: #### URCUL #### [facility] [address] [place], [place] [address] CNOV Observed: 03/20/2018 Status: COMPLETED Source: [place] 10:15 AM [facility] REPOSITORY [facility] ([id number]) 1985 F Date Time Provider Department 03/20/18 10:15 AM SUZANNA HERRERA RUST During your visit today, we recorded the [...] will turn your urine orange/red. Suzanna Herrera APRN.CONCENTRATOR OPERATOR 03/20/2018 10:58 AM Signed Subjective HPI Pt [...] and printed UTI education. 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 Pt agreeable. The patient is instructed to return or seek emergency treatment if symptoms become worse or with any acute change in condition. The patient verbalizes understanding and is in agreement with plan of care. IMTIAZ Zhang APRN.IMTIAZ 03/20/2018 3:01 PM Signed Addended by: SUZANNA [...] Diagnosis:Dysuria [R30.0] Order(s):URINE CULTURE [SQURCUL] Order #: [id number] UA DIP B/O [[id number]] Order #: [id number] cephALEXin (KEFLEX) 500 mg capsuleTake 1 capsule [...] by SUZANNA HERRERA CNP on 03/20/18 CT/NG H BY PCR Collected: 02/25/2018 Status: F Source: [place] 4:00 PM [facility] REPOSITORY TYPE CODE TESTS RESULT OUT OF RANGE REFERENCE UNITS LAB L8200.2100 Negative Normal Chlam Negative Trac PCR LAB L8200.2200 Negative Normal NG by Negative PCR Performed By: #### L8200.2000 #### [facility] [address] [place], [address] Observed: 11/30/2017 Status: F Source: [place] URINE CULTURE 5:30 PM [facility] REPOSITORY Sp. Request/Comment: - Specimen received [...] <=0.5 F Performed By: #### URCUL #### [facility] [address] [place], [place] [address] PROGRESS Observed: 11/30/2017 Status: COMPLETED Source: [place] 5:26 PM [facility] REPOSITORY HNO ID: [id number] Author: Alma Chavira Service: (none) Author Type: Nurse Practitioner Type: [...] Neg NEG Ketones, Urine Neg NEG Specific [place], Ur 1.005 - 1.030 1.005 Hemoglobin/Blood,Ur Neg [...] discussed in detail warranting prompt ER evaluation. DARWIN RivasOV Observed: 11/30/2017 Status: COMPLETED Source: [place] 5:15 PM [facility] REPOSITORY Office Visit ([facility]) MEGHNA RUIZ ([id number]) 1985 F Date Time Provider Department 11/30/17 5:15 PM ALMA CHAVIRA (IMTIAZ) [facility] During your visit today, we recorded the following information about you: Temperature Pulse Respiration Blood pressure 96.9 degrees 64/minute 14/minute 108/66 Weight Last Period 54.9 kg 11/30/17 Alma Chavira APRN.CNP 11/30/2017 7:31 PM Addendum Subjective HPI HPI [...] Neg NEG Ketones, Urine Neg NEG Specific [place], Ur 1.005 - 1.030 1.005 Hemoglobin/Blood,Ur Neg [...] discussed in detail warranting prompt ER evaluation. DARWIN Rivas APRN.CNP 11/30/2017 5:35 PM Signed ASSESSMENT/PLAN: 1. Acute [...] Diagnosis:Burning with urination [R30.0] Order(s):UA DIP B/O [[id number]] Order #: [id number] URINE CULTURE [SQURCUL] Order #: [id number] sulfamethoxazole-trimethoprim (BACTRIM DS) 800-160 mg per tabletTake [...] 11/30/17 PROGRESS Observed: 11/13/2017 Status: COMPLETED Source: [place] 2:24 PM [facility] REPOSITORY [facility] ID: [id number] Author: Sharona Walker Provider Service: (none) Author Type: Physician Type: Progress Notes Filed: 11/13/2017 10:31 AM Note Text: null (CCF:Not available AMW:[id number]) Visit Summary for Meghna PierreHal Ruiz - Gender: Female - Date of : 1985 ( ) Date: [id number] - Duration: 5 minutes Patient: Meghna Ruiz Provider: Ivania Perry Patient Contact Information Address [address] [place] [address]; [place] [phone] Visit Topics UTI [Added By: Self - 2017-11-13] Triage Questions Please provide your current address. We need this on file in case of a medical emergency.Answer [[address] [place] [address], [place] [address]] Conversation Transcripts [Notification] PO Sauer, will help you prepare for your visit. She is assisting Iavnia Perry, Family Physician.[Any Plata] Hello and thank you for connecting, Dr. Bennett [...] connected with Ivania Perry, Family Physician.[Notification] Meghna Esquivel Ruiz is located in [place].[Notification] Meghna Ruiz has shared health history... Diagnosis Acute cystitis with hematuria Value: N30.01 Code: ICD-10-CM Procedures Value: 52726 Code: CPT-4 ONLINE E/M BY PHYS/QHP Medications [...] fluids, cranberry juice4.You may consider using the vkpz-rib-srslbvu medication called phenazopyridine (the commercial name can [...] or problems with the prescription, please call [phone] for assistance. 3.If your symptoms are worse [...] SEVERITY SOURCE 10/24/2016 Drug amoxicillin/F006 Unknown Unknown [facility]ari Allergy/[id number]( 097106(RXNORM) [facility] Repository 10/24/2016 Miscellaneous moris Rash Unknown [facility]ari Allergy/958840513( [facility] Repository 05/07/2015 Drug PENICILLINS UNKNOWN [place] Class/[id number]([facility]) [place] Repository ENCOUNTERS ENCOUNTERS ADMIT/DISCHARGE ACCOUNT ADMITTING ENCOUNTER LOCATION SOURCE NUMBER CLASS 09/08/2018 [id number] [facility] Repository 07/13/2018 [id number] Ambulatory [facility] ing:LAB Repository 07/05/2018 [id number] Ambulatory [facility] ing:WOBLAB Repository 04/07/2018 [id number] Ambulatory [facility] ing:WOBLAB Repository 03/20/2018/03/22/20 [id number] [address] Repository 02/25/2018 [id number] [facility] ing:LABSPEC Repository 11/30/2017/12/02/19 [id number] Ambulatory [address] Repository PAYERS PAYERS ENCOUNTER GUARANTOR PAYER SUBSCRIBER SOURCE 09/08/2018 MEGHNA Pierre Radha TIRADO N KLINEDOB: Shari [id number] [place] Insurance:MEDICAL [id number] [address]Nub: (330) Number: Repository [phone] () [id number] Date:0190-35-00SI [address] [place] [id number]: 09/08/2018 Secondary NOT GIVENUNK Shari Insurance:SELF PAY [facility] Number: Effective Repository Date:2018-09-08 07/13/2018 MEGHNA Pierre Radha TIRADO N KLINEDOB: Shari [id number] [place] Insurance:MEDICAL [id number] [id number]: (330) Number: Repository [phone] () [id number] Date:3707-64-89RJ [address] [place] [id number]: 07/13/2018 Secondary NOT GIVENUNK [place] Insurance:SELF PAY [facility] Number: Effective Repository Date:2018-07-07 07/05/2018 Meghna Garcia CELESTINO Davila KLINEDOB: Shari [id number] [place] Insurance:MEDICAL [id number] [address]Les: (330) Number: Repository [phone] () [id number] Date:2234-36-41UF [address] [phone]: 07/05/2018 Secondary NOT GIVENUNK [place] Insurance:SELF PAY [facility] Number: Effective Repository Date:2018-07-05 04/07/2018 Meghna Primary CELESTINO Lola GORDONINEDOB: Shari [id number] [place] Insurance:MEDICAL [id number] [address]Cyn: (330) Number: Repository [phone] () [id number] Date:8464-03-27JB [address] [phone]: 04/07/2018 Secondary NOT GIVENUNK Shari Insurance:SELF PAY [facility] Number: Effective Repository Date:2018-04-07 02/25/2018 [facility] CELESTINO Lola KLINEDOB: [place] [id number] [place] Insurance:MEDICAL [id number] Mental Health [facility] [address]Xur: (330) Number: Repository [phone] () [id number] Date:0218-95-38GJ [address] [address]AT: 02/25/2018 Secondary NOT GIVENUNK Shari Insurance:SELF PAY [facility] Number: Effective Repository Date:2018-02-25
== END ==
PROVIDERS: Visit Provider Obstetrics & Gynecology
DX: Z36.85 Encounter for antenatal screening for Streptococcus B (principal)
CPT/HCPCS: 87081

== ENCOUNTER 2018-09-27 05:02 | Inpatient (IN) | payer OTHER, SELFPAY ==
[2018-09-27] VITALS (22 sets, daily range): BP systolic 106–154; BP diastolic 58–87; PULSE 60–96; RESP 14–18; TEMP 35.8–37; O2SAT 98–100; BMI 26.5
[2018-09-27] MEDS: Lactated Ringers 1,000 ML 999 ML IV (05:35)
[2018-09-27 05:54] LABS: Absolute Lymphocyte Count 1.67 X10^3/ul (0.83-4.51); Absolute Neutrophil Count 4.4 X10^3/uL (2.0-7.7); Basophil# 0.02 X10^3/uL; Basophil% 0.3 % (0-1); Eosinophil# 0.08 X10^3/uL; Eosinophils% 1.2 % (0-5); Hematocrit 34.2 % (37-47); Hemoglobin 10.6 g/dl (12.0-15.0); Lymphocyte # 1.67 X10^3/ul (4.0); Lymphocyte % 24.7 % (19-41); Mean Corpuscular Hgb 27.3 pg (27.0-32.0); Mean Corpuscular Volume 88.1 fL (81-99); Mean Platelet Vol. 11.4 fl (6.2-12.0); Monocyte# 0.55 X10^3/uL; Monocyte% 8.1 % (0-10); Neutrophil # 4.41 X10^3/uL (2.7-7.7); Neutrophil % 65.3 % (47-70); Platelet Count 123 K/mm3 (150-450); RBC Distribution Width CV 14.2 % (11.6-14.6); RBC Distribution Width SD 44.2 fl (35.1-43.9); Red Blood Count 3.88 M/mm3 (4.2-5.4); White Blood Count 6.8 K/mm3 (4.4-11.0)
[2018-09-27 06:26] LABS: POSITIVE COUNT NO; POSITIVE DIFFERENTIAL NO; POSITIVE MORPHOLOGY NO
[2018-09-27] MEDS: Sodium Citrate/Citric Acid 30 ML UDC PO (07:22)
[2018-09-27] MEDS: Lactated Ringers 1,000 ML 150 ML IV (07:24)
--- NOTE | 2018-09-27 07:40 | OP.PCM_ITS ---
Report of Operation Date of Procedure: 09/27/18 Pre-Operative Diagnosis: Prior Section Post-Operative Diagnosis: Prior Section Surgery/Procedure Performed:: Repeat Low Transverse Cervical Section Description of Surgical Findings:: Viable female infant with Apgars of 9/9 and an occiput anterior presentation with clear amniotic fluid and normal three-vessel placenta. source water protection specialist: Celia Elam Type of Anesthesia:: Spinal - With Duramorph Anesthesiologist: Keith Thayer Specimen's removed: Placenta to WP Drains: Russell to straight drain Estimated Blood Loss (mL): 750 cc Fluids Replaced: Crystalloid Description of Procedure: Surgeon: Prince Adams MD, FACOG Indication: This is a 32-year-old who presents for her second at 39+ weeks gestation. care has otherwise been uneventful. The patient has been counseled regarding the risk and indications of this procedure including the possibility of bleeding infection and injury to surrounding structures such as bowel bladder. All questions were answered. Procedure: Patient was taken to the operating room where after spinal anesthesia was placed, the patient was prepped and draped in usual sterile fashion and a Russell catheter was placed. The abdomen was entered through the patient's prior Pfannenstiel incision and peritoneum was entered bluntly. After developing a bladder flap on the lower uterine segment a low transverse incision was made on the uterus and head was easily delivered onto the operative field the nose mouth and oropharynx were bulb suctioned. Subsequently a viable female infant was born with Apgars of 9/9. The infant was noted to cry move all extremities vigorously on the operative field. The umbilical cord was doubly clamped and ligated and handed to the nursery personnel who were present for the delivery. Placenta was delivered and noted to be 3 vessels and normal. Uterus was exteriorized and remaining placental tissue was removed. The uterus was then closed in 2 layers first with running locked 0 Vicryl suture followed by a second imbricating layer with 0 Vicryl suture. 0 Vicryl suture was then used in a horizontal mattress interrupted fashion to affect final hemostasis of the uterine incision line. Normal fallopian tubes and ovaries were visualized and the uterus was returned to the pelvis. Hemostasis was noted and rectus abdominis muscles were reapproximated in the midline with interrupted Number 0 Vicryl suture in a horizontal mattress fashion. Fascia was closed with running Number 1 PDS Strata fix suture. Subcutaneous tissue was irrigated with copious amouts of saline solution and then closed with running 3-0 Vicryl suture. Skin was closed with 4-0 monocryl suture in a running subcuticular fashion. Steri strips, telfa, and tape were placed across the incision. The patient tolerated the procedure well and was taken to the recovery room in satisfactory condition. Sponge, needle, and instrument counts were all reportedly correct. EBL was less than 500 cc. Ancef 2 gms IV was given prior to the procedure. Spicemen to Pathology: None Grafts/Implants Used: None - Complications None - Admit VTE Documentation VTE Present on Admission: Yes VTE Mechan Device Prophylaxis: SCD's VTE Pharm Prophylaxis ordered?: Yes
--- NOTE | 2018-09-27 07:40 | DCINST_ITS ---
Discharge Diet: No Restrictions Discharge Activity: May not drive while taking narcotic pain medications., May Shower, May Take a Tub Bath May resume sexual activity in: 4-6 weeks Lifting Restrictions: 20 pounds Additional Activity Instructions:: Nothing in the vagina for 4-6 weeks. You may return to work/school in 6 weeks. Call your doctor if your incision/area has: Continuous Slow Oozing, Sudden Increased Bleeding, Increased Pain/ Swelling, Increased Redness, Foul Smelling Discharge Call your doctor if you observe: Fever of 101 or Higher, Inability to urinate, Inability to have a bowel movement, Using more than one pad per hour Additional Instructions: If you experience any of the following, contact your healthcare provider. * Bleeding that soaks a pad every hour for 2 hours * Unrelieved incision or abdominal pain * Swelling, redness, discharge or bleeding from your incision or episiotomy site * Your incision begins to separate * Problems urinating (including inability to urinate or burning while urinating). * Visual changes * Severe headache * Flu-like symptoms * Pain or redness in one of both of your breasts * Pain, warmth, tenderness or swelling in your legs, especially the calf area * Frequent nausea and vomiting * Symptoms of depression or anxiety If you experience any of the following, call 911 or go to the nearest Emergency Room. * Chest pain * Problems breathing * Seizure activity * Partial or complete paralysis of a body part, slurred speech, weakness or drooping of the face, or a sudden inability to walk or hold your balance Allergies/Adverse Reactions: Allergies amoxicillin Allergy (Verified 09/27/18 05:18) Unknown moris Allergy (Uncoded 09/27/18 05:18) Rash Medications to take at Discharge Vits [Prenatabs FA] 1 tablet PO DAILY 10/24/16 Docusate Sodium [Colace] 100 mg PO DAILY PRN PRN #60 cap 09/27/18 Oxycodone [Oxyir] 5 mg PO Q6H PRN PRN 7 Days #20 tab 09/27/18 The following prescriptions were given: Oxycodone [Oxyir] 5 mg PO Q6H PRN PRN 7 Days #20 tab PRN Reason: Severe Pain () Docusate Sodium [Colace] 100 mg PO DAILY PRN PRN #60 cap PRN Reason: Constipation Follow-Up: Call to make an appointment with your doctor for an incision check in 1-2 weeks. You will also need a 6 week post- follow up appointment. Test results from this visit will be discussed in further detail at your follow- up appointment, if applicable. Please Follow Up With: Prince Adams MD - [phone] When: Call to make an appointment for an incision check in 2 weeks. Primary Care Physician: Care Physician,No Primary [Primary Care Provider] -
[2018-09-27] MEDS: Cefazolin 2 GM in 0.9% Normal Saline 100 ML IV (07:45)
[2018-09-27] MEDS: Oxytocin 30 units/NS 500 ml 30 UNITS/500 ML IV.SOLN 167 UNITS IV ×3 (08:04→08:40)
[2018-09-27] MEDS: Methylergonovine 0.2 MG/ML Ampul IM (08:08)
[2018-09-27] MEDS: Ondansetron 4 MG/2 ML Vial IV (11:35)
[2018-09-27] MEDS: Lactated Ringers 1,000 ML 100 ML IV (15:52)
[2018-09-27] MEDS: Ketorolac 30 MG/ML Syringe IV ×2 (15:53→23:43)
[2018-09-27] MEDS: Cefazolin 1 GM/50 ML BAG IV ×2 (15:54→23:42)
[2018-09-27] MEDS: 0.9% Saline Lock 10 ML Syringe IV (23:42)
[2018-09-28] VITALS (7 sets, daily range): BP systolic 105–127; BP diastolic 69–76; PULSE 68–101; RESP 16–18; TEMP 36.5–36.8; O2SAT 98–100
[2018-09-28] MEDS: Lactated Ringers 1,000 ML 100 ML IV (02:35)
[2018-09-28 05:14] LABS: Hematocrit 31.6 % (37-47); Hemoglobin 9.8 g/dl (12.0-15.0); Mean Corpuscular Hgb 27.6 pg (27.0-32.0); Mean Platelet Vol. 10.8 fl (6.2-12.0); Platelet Count 113 K/mm3 (150-450); RBC Distribution Width CV 14.3 % (11.6-14.6); RBC Distribution Width SD 45.1 fl (35.1-43.9); Red Blood Count 3.55 M/mm3 (4.2-5.4); Scan Indicated on CBC? Y/N NO; White Blood Count 7.4 K/mm3 (4.4-11.0)
[2018-09-28] MEDS: Ketorolac 30 MG/ML Syringe IV ×3 (06:07→18:31)
[2018-09-28] MEDS: 0.9% Saline Lock 10 ML Syringe IV ×2 (06:07→18:31)
--- NOTE | 2018-09-28 08:11 | PCM.PN.OB ---
Subjective: Patient without complaints. Tolerating diet well. Positive flatus. Pain well controlled. Wants to stay another day. - Physical Exam Vital Signs Temp Pulse Resp BP Pulse Ox 97.7 F L 79 18 107/69 100 09/28/18 04:30 09/28/18 06:11 09/28/18 06:11 09/28/18 04:30 09/28/18 04:30 Oxygen Delivery Method Room Air Weight: 159 lb 6.307 oz Body Mass Index (BMI) 26.5 Intake and Output for Last 24 Hours 09/26/18 09/27/18 09/28/18 23:59 23:59 23:59 Intake Total 2643 / 2643 1339 / 1339 Output Total 2150 / 2150 1200 / 1200 Balance 493 / 493 139 / 139 Laboratory Tests Past 24 Hrs 09/28/18 04:45 WBC 7.4 RBC 3.55 L Hgb 9.8 L Hct 31.6 L MCV 89.0 MCH 27.6 MCHC 31.0 L RDW 14.3 RDW Differential 45.1 H Plt Count 113 L MPV 10.8 Wound is clean, dry, intact. Good urine output. Hemoglobin okay. Medical Necessity - Tobacco Use Smoking Status: Never smoker Assessment/Plan Doing well postoperative day #1 status post repeat . Continuing present care.
[2018-09-28] MEDS: Acetaminophen 500 MG Tablet 1000 MG PO (16:21)
[2018-09-28] MEDS: Senna/Docusate Sodium 1 Tablet PO (18:39)
[2018-09-29] MEDS: Ketorolac 30 MG/ML Syringe IV ×2 (00:01→06:08)
[2018-09-29] MEDS: Acetaminophen 500 MG Tablet 1000 MG PO ×2 (00:01→08:08)
[2018-09-29] MEDS: 0.9% Saline Lock 10 ML Syringe IV ×2 (00:01→06:09)
[2018-09-29 02:30] VITALS: BP 112/79; PULSE 80; RESP 18; TEMP 36.8
[2018-09-29 04:22] VITALS: BP 111/64; PULSE 87; RESP 18; TEMP 36.9
[2018-09-29 07:56] VITALS: BP 110/72; PULSE 92; RESP 18; TEMP 37.1; O2SAT 98
--- NOTE | 2018-09-29 09:05 | PCM.PN.OB ---
Subjective: Patient without complaints. Tolerating diet well. Positive flatus. Wants to go home later today. - Physical Exam Vital Signs Temp Pulse Resp BP Pulse Ox 98.8 F 92 18 110/72 98 09/29/18 07:56 09/29/18 07:56 09/29/18 07:56 09/29/18 07:56 09/29/18 07:56 Oxygen Delivery Method Room Air Weight: 159 lb 6.307 oz Body Mass Index (BMI) 26.5 Intake and Output for Last 24 Hours 09/27/18 09/28/18 09/29/18 23:59 23:59 23:59 Intake Total 2643 / 2643 1339 / 1339 Output Total 2150 / 2150 2200 / 2200 Balance 493 / 493 -861 / -861 Medical Necessity - Tobacco Use Smoking Status: Never smoker Assessment/Plan Doing well postoperative day #2 status post repeat . Will release to home with routine instructions.
[2018-09-29] MEDS: Ibuprofen 600 MG Tablet PO (11:50)
[2018-09-29 13:19] VITALS: BP 117/66; PULSE 98; RESP 18; TEMP 37.2; O2SAT 97
== END 2018-09-29 13:40 | disposition home or self-care (01) | DRG 788 ==
PROVIDERS: Admitting Provider Obstetrics & Gynecology; Referring Provider Obstetrics & Gynecology; Visit Provider Obstetrics & Gynecology
PROC: 10D00Z1 Extraction of Products of Conception, Low, Open Approach (ICD-10-PCS; CPT 59514; principal; 2018-09-27 07:15)
DX: O34.211 Maternal care for low transverse scar from previous cesarean delivery (principal); Z3A.39 39 weeks gestation of pregnancy; Z37.0 Single live birth
CPT/HCPCS: 85025; 85027; 86850; 86900; 99218; J7120; A4216; G0378; J2405; J3490

== ENCOUNTER → 2018-10-01 13:24 | Outpatient (CLI) | payer OTHER, SELFPAY ==
[2018-09-27 05:17] VITALS: BMI 26.5
== END ==
PROVIDERS: Referring Provider Obstetrics & Gynecology; Visit Provider Obstetrics & Gynecology
DX: R50.9 Fever, unspecified (principal); Z98.890 Other specified postprocedural states
CPT/HCPCS: 87804

== ENCOUNTER → 2018-11-11 17:23 | Outpatient (CLI) | payer OTHER, SELFPAY ==
[2018-09-27 05:17] VITALS: BMI 26.5
[2018-11-17 11:18] LABS: HPV Reflexed? NOT INDICATED
== END ==
PROVIDERS: Referring Provider Obstetrics & Gynecology; Visit Provider Obstetrics & Gynecology
DX: Z12.4 Encounter for screening for malignant neoplasm of cervix (principal)
CPT/HCPCS: 87624; 88175; G0145

== ENCOUNTER → 2019-11-17 09:18 | Outpatient (CLI) | payer OTHER, SELFPAY ==
[2018-09-27 05:17] VITALS: BMI 26.5
--- NOTE | 2019-11-17 09:23 | US_ITS ---
STUDY: ULTRASOUND BREAST - RIGHT REASON FOR EXAM: Female, 34 years old. Palpable lump in the right breast. TECHNIQUE: Axial and longitudinal images of the RIGHT breast were performed with a high resolution ultrasound transducer. # OF IMAGES: 17 COMPARISON: Comparison is made with prior mammogram done earlier in the day. FINDINGS: RIGHT Breast: There is a 4 mm x 5 mm x 2 mm cyst at the 10:00 clock position of the breast at 3 cm from nipple. US/Breast Limited Unilateral IMPRESSION: 4 mm x 5 mm x 2 mm cyst at the 10:00 position of the breast at 3 cm from nipple. ASSESSMENT CATEGORY: BIRADS Category 2: Benign. A letter regarding these results will be sent to the patient by the facility within 30 days. Electronically Signed: Luciano Mayer, at 12:15 EDT , Service support ,
--- NOTE | 2019-11-17 09:23 | BI_ITS ---
MAMMOGRAPHY - BILATERAL DIAGNOSTIC REASON FOR EXAM: Female, 34 years old. Right breast lump. The patient is presently breast-feeding. PERTINENT HISTORY: Mother with breast cancer. TECHNIQUE: Digital bilateral breast chano (3D mammographic acquisition) in the CC and MLO projections. 2-D mediolateral oblique (MLO) and craniocaudad (CC) views of both breasts were obtained. CAD: Full Field Digital Mammography with Computer Added Detection was performed. COMPARISON: None. Baseline examination. FINDINGS: Breast Composition: The breasts are extremely dense, which lowers the sensitivity of mammography. There are no dominant masses or suspicious calcifications. No other significant abnormalities are identified. BI/DIAG MAMM W/CAD, BILAT IMPRESSION: Negative diagnostic mammogram. With the patient history of a palpable lump in the upper outer quadrant of the right breast, correlation with ultrasound is recommended. ASSESSMENT CATEGORY: BIRADS Category 0: Incomplete. Need additional imaging evaluation. A letter regarding these results will be sent to the patient by the facility within 30 days. Approximately 10% of breast cancers are not detected by mammography. A normal mammogram should not delay biopsy of a clinically suspicious abnormality. Electronically Signed: Luciano Mayer, at 11:03 EDT , Service support ,
== END ==
PROVIDERS: Referring Provider Obstetrics & Gynecology; Visit Provider Obstetrics & Gynecology
DX: N63.11 Unspecified lump in the right breast, upper outer quadrant (principal)
CPT/HCPCS: 76642; 77062; 77066; G0279

== ENCOUNTER → 2021-03-14 13:31 | Outpatient (CLI) | payer OTHER, SELFPAY ==
[2018-09-27 05:17] VITALS: BMI 26.5
[2021-03-14 15:22] LABS: Absolute Lymphocyte Count 1.41 X10^3/uL (0.83-4.51); Absolute Neutrophil Count 6.5 X10^3/uL (2.0-7.7); Basophil# 0.03 X10^3/uL; Basophil% 0.4 % (0-1); Eosinophil# 0.07 X10^3/uL; Eosinophils% 0.8 % (0-5); Hematocrit 39.3 % (37-47); Lymphocyte # 1.41 X10^3/ul (0.83-4.51); Lymphocyte % 16.5 % (19-41); Mean Corp Hgb Conc 33.1 g/dL (32-36); Mean Corpuscular Hgb 28.4 pg (27.0-32.0); Mean Corpuscular Volume 85.8 fL (81-99); Mean Platelet Vol. 10.6 fl (6.2-12.0); Monocyte# 0.55 X10^3/uL; Monocyte% 6.4 % (0-10); NRBC Flagged by Analyzer 0 % (0-5); Neutrophil # 6.46 X10^3/uL (2.7-7.7); Neutrophil % 75.5 % (47-70); Platelet Count 195 K/mm3 (150-450); RBC Distribution Width CV 12.6 % (11.6-14.6); RBC Distribution Width SD 39.3 fl (35.1-43.9); Red Blood Count 4.58 M/mm3 (4.2-5.4); White Blood Count 8.6 K/mm3 (4.4-11.0)
[2021-03-14 15:45] LABS: Color, Urine Yellow (Yellow); Glucose, Dipstick Normal (Normal); Ketone-Dipstick Negative (Negative); Leukocyte Esterase-Dipstick Negative /ul (Negative); Nitrite-Dipstick Negative (Negative); Occult Blood-Urine Negative /ul (Negative); Protein-Dipstick Negative (Negative); Urine Bilirubin Dipstick Negative (Negative); Urine Clarity Sl. Cloudy (Clear); Urine Urobilinogen Normal (Normal)
[2021-03-14 16:04] LABS: Thyroid Stim Hormone (TSH) 0.62 uIU/mL (0.358-3.74)
[2021-03-15 08:59] LABS: HIV - WCH Non-Reactive (Nonreactive); Hepatitis B Surface Antigen Non-Reactive (Nonreactive); Hepatitis C Antibody Non-Reactive (Nonreactive); Rubella IgG Reactive (Nonreactive); Syphilis Antibodies Non-reactive
[2021-03-18 04:06] LABS: Chlamydia By Nucleic Acid AMP Negative (Negative)
[2021-03-18 12:02] LABS: Gonococcus By Nucleic Acid AMP Negative (Negative)
[2021-03-19 13:44] LABS: HPV Reflexed? NOT INDICATED
== END ==
PROVIDERS: Visit Provider Obstetrics & Gynecology
DX: Z34.81 Encounter for supervision of other normal pregnancy, first trimester (principal)
CPT/HCPCS: 36415; 81002; 84443; 85025; 86703; 86762; 86780; 86803; 87340; 87491; 87591; 88175; G0145

== ENCOUNTER → 2021-08-01 09:55 | Outpatient (CLI) | payer OTHER, SELFPAY ==
[2021-08-01 11:05] LABS: Hematocrit 33.1 % (37-47); Hemoglobin 10.4 g/dL (12.0-15.0); Mean Corp Hgb Conc 31.4 g/dL (32-36); Mean Corpuscular Hgb 27.9 pg (27.0-32.0); Mean Corpuscular Volume 88.7 fL (81-99); Mean Platelet Vol. 10.3 fl (6.2-12.0); Platelet Count 178 K/mm3 (150-450); RBC Distribution Width CV 13.6 % (11.6-14.6); RBC Distribution Width SD 44.2 fl (35.1-43.9); Red Blood Count 3.73 M/mm3 (4.2-5.4); White Blood Count 8.7 K/mm3 (4.4-11.0)
[2021-08-01 11:12] LABS: Glucose Challenge Gest 1H 50g 188 mg/dL (70-140)
== END ==
PROVIDERS: Visit Provider Obstetrics & Gynecology
DX: Z34.83 Encounter for supervision of other normal pregnancy, third trimester (principal)
CPT/HCPCS: 36415; 82950; 85027

== ENCOUNTER → 2021-08-14 08:45 | Outpatient (CLI) | payer OTHER, SELFPAY ==
[2021-08-14 09:54] LABS: Glucose GTT-Gestation. Fasting 81 mg/dL (<105)
[2021-08-14 10:29] LABS: Glucose GTT-Gestational 1 Hr 231 mg/dL (<190)
[2021-08-14 11:27] LABS: Glucose GTT-Gestational 2 Hr 243 mg/dL (<165)
[2021-08-14 12:42] LABS: Glucose GTT-Gestational 3 Hr 148 L (<145)
== END ==
PROVIDERS: Visit Provider Obstetrics & Gynecology
DX: O24.912 Unspecified diabetes mellitus in pregnancy, second trimester (principal)
CPT/HCPCS: 36415; 82951; 82952

== ENCOUNTER 2021-09-25 14:58 | Outpatient (CLI) | payer OTHER, SELFPAY | END 2021-09-25 23:59 | disposition home or self-care (01) | LOC: LABSPEC 15:03 | PROVIDERS: Visit Provider Obstetrics & Gynecology | DX: Z36.85 Encounter for antenatal screening for Streptococcus B (principal) | CPT/HCPCS: 87077; 87081; 87186 ==

== ENCOUNTER 2021-10-15 05:10 | Inpatient (IN) | payer OTHER, SELFPAY ==
[2021-10-15] VITALS (18 sets, daily range): BP systolic 97–114; BP diastolic 48–76; PULSE 70–96; RESP 10–97; TEMP 35.5–36.7; O2SAT 10–100; BMI 26.2
--- NOTE | 2021-10-15 | FALS_PTH ---
PATIENT: KAMAR RUIZ LOC: [facility] U#:[id number] AGE/SX: 36/F ROOM: WP007 RE10/15/[address]: Dr. Prince Adams MD : 1985 BED: 1 DIS: 10/17/2021 SPEC #: [id number] RECD: 10/15/21 10:57 STATUS: FRANCES REPercy #: [id number] GRAHAM: 10/15/21 00:[address]: Prince Adams DEPT: SURGICAL PATHOLOGY RECD BY: Clarke Lawrence ENTERED: 10/15/21 10:57 SP TYPE: FALL TUBES OTHR DR: No Primary Care Phys Tissues: Fallopian tube Procedures: Surgery Specimen Level II HEADER OPERATION: Tubal ligation PRE-OP DIAGNOSIS: Sterilization TISSUE SUBMITTED: Fallopian tubes, suture in right tube MICROSCOPIC DIAGNOSIS Right fallopian tube, segmental resection: Complete segment of fallopian tube with no pathologic change. Left fallopian tube, segmental resection: Complete segment of fallopian tube with no pathologic change. AM:mariana 10/16/2021 MICROSCOPIC DESCRIPTION Slides are reviewed. GROSS DESCRIPTION Received in fixative is one container labeled with the patient's name and designated bilateral fallopian tubes, right with suture. The specimen consists of bilateral fallopian tubes including fimbrial ends. The right fallopian tube measures 7 cm in length and 0.6 cm in diameter and the left fallopian tube measures 5 cm in length and 1 cm in diameter. Sections reveal unremarkable cut surfaces. Stunt Person sections are submitted in two cassettes as follows: 1 ? right fallopian tube, 2 ? left fallopian tube. / SUMMER:mariana 10/15/2021 TC:4 CPT: 01869 x2
[2021-10-15] MEDS: Lactated Ringers 1,000 ML 999 ML IV (05:30)
[2021-10-15 05:51] LABS: Bedside Glucose 86 mg/dL (70-110)
[2021-10-15 05:58] LABS: Absolute Lymphocyte Count 1.47 X10^3/uL (0.83-4.51); Absolute Neutrophil Count 3.7 X10^3/uL (2.0-7.7); Basophil# 0.03 X10^3/uL; Basophil% 0.5 % (0-1); Eosinophil# 0.08 X10^3/uL; Eosinophils% 1.4 % (0-5); Hematocrit 32.6 % (37-47); Hemoglobin 10.9 g/dL (12.0-15.0); Lymphocyte # 1.47 X10^3/ul (0.83-4.51); Lymphocyte % 25.3 % (19-41); Mean Corp Hgb Conc 33.4 g/dL (32-36); Mean Corpuscular Volume 83.8 fL (81-99); Mean Platelet Vol. 10.9 fl (6.2-12.0); Monocyte# 0.51 X10^3/uL; Monocyte% 8.8 % (0-10); NRBC Flagged by Analyzer 0 % (0-5); Neutrophil # 3.68 X10^3/uL (2.7-7.7); Neutrophil % 63.5 % (47-70); Platelet Count 158 K/mm3 (150-450); RBC Distribution Width CV 15.8 % (11.6-14.6); RBC Distribution Width SD 47.4 fl (35.1-43.9); Red Blood Count 3.89 M/mm3 (4.2-5.4); White Blood Count 5.8 K/mm3 (4.4-11.0)
[2021-10-15] MEDS: Acetaminophen 500 MG Tablet 1000 MG PO ×4 (06:18→23:34)
[2021-10-15] MEDS: Lactated Ringers 1,000 ML 150 ML IV (06:30)
[2021-10-15] MEDS: Sodium Citrate/Citric Acid 30 ML UDC PO (06:49)
[2021-10-15] MEDS: Cefazolin 2 GM in 0.9% Normal Saline 100 ML IV (07:22)
--- NOTE | 2021-10-15 08:34 | PCM.HP.BLA ---
History and Physical Date of Admission: 10/15/21 ACOG ANTEPARTUM RECORD - HISTORY AND PHYSICAL (10/15/2021) Name: MEGHNA RUIZ History of this : This is a 36 year old [id number] presents at 39 wks + 0 days gestation who presents for repeat and bilateral salpingectomy. OB Physician: Prince Adams MD 's Physician: CARMEN ...................................................................... : 1985 Age: 36 Address: [address] [place] [address] Phone: (h) [phone] (o) [phone] Insurance Carrier: [facility] [id number] Emergency Contact: CELESTINO RUIZ [phone] ...................................................................... Final MARILYN: 10/22/21 By Ultrasound: 8 weeks 2 days PARITY: (G-Total Pregnancies P-Fullterm,Premature,Induced AB,Spont AB, Ectopics, Multiple,Living) MARILYN CONFIRMATION: By LMP: 01/17/21 Final MARILYN: 10/22/21 OB PROBLEM LIST: ALLERGY PENICILLIN and nickel. Considering tubal ligation , Rediscuss at 28 weeks FOB has sister with Paredes's Syndrome History of section x2 , For repeat section Prior history of GDM --has GDM with this as well; try diet control first. Two prior C-sections--plan repeat with tubal ALLERGIES: Nickel Skin irritation NKDA Penicillins Hives and/or rash MEDICATIONS: aspirin 81 mg tablet,delayed release 1 PO QD Multiple Vitamin, Womens tablet One pill by mouth once a day Probiotic 10 billion cell capsule One pill by mouth once a day prn vitamin B complex tablet One pill by mouth once a day SOCIAL HISTORY: Smoking - Never Alcohol Use - None Diet - balanced Diet, caffeine < 2 drinks per day and Water intake tries for 90-100 oz daily. Lifestyle - Exercise - Active at home w kids. Enc to take walks 20 min. Employer - [employer] Job Description - Illicit Drug Use - None Sexual Activity - [employer] Residence - lives w husb and kids. Place of - [place] Spouse-Sig Other Name - Celestino Spouse-Sig Other Occupation - Teacher, [employer] learning intervention Spouse-Sig Other Phone No - [phone] Children Name(s) - Karla '13, Johanne '15, Donnie(17), Sandy (') PRIOR DELIVERY HISTORY DEL DATE GEST LAB WT LB WT OZ TYPE ANES LABOR TX 03 Oct 29 39 6 8 0 Vag Epidural No 11 Oct 05 39 0 8 0 C-Sec Spinal No 13 Oct 31 40 2 8 0 C-Sec General No 18 Jun 28 39 16 7 7 Vag Epidural No ANTEPARTUM FLOW CHART VISIT GE RTC FU F F MT U U DATE WK MD WKS HT PN HR M SS BP ED WT MT GL D EF ST __ ____ ___ __ __ ___ __ __ __ ___ __ __ __ ___ __ 23 Sep 38 JMW 4 37 V + + 106/62 1+ 159 ne ne 16 Sep 37 JMW 1 37 + + 128/68 1+ 157 - - 09 Sep 36 JMW 1 36 V + + 124/62 1+ 155 ne ne ft 50 -2 Aug JMW 3 33 + + 122/70 0 155 tr - Sep 16 JMW 2 31 + + 112/68 0 153 ne ne Aug 13 JMW 3 28 + + 118/64 0 152 ne ne Jul 10 JMW 4 24 + + 106/66 0 149 - - Jun 06 JMW 4 21 + + 108/58 0 144 - - Jun 02 JM 4 17 - + ? 106/64 0 138 - tr Apr 28 JMW 4 + 112/58 0 134 ne ne ANTEPARTUM NOTE(S): Oct 09 2021: Good FM, BPP 03/24Oct 02 2021: BS control good and Good FM, BPP 03/24Sep 25 2021: GBS, LARC today, BS good controlled Sep 05 2021: Blood Sugars Copied,Good FM Aug 22 2021: Good FM, Excellent BS control Aug 01 2021: CBC, 1HGT completed today Jul 04 2021: Glucola/Instructions Given,Good FM Jun 13 2021: Sono Today, Good FM,Feeling Well May 17 2021: decreased n/v Apr 17 2021: Genetic packet COMPREHENSIVE ANTEPARTUM NOTE(S): Oct 10 2021: H taken to OB. tkg Oct 02 2021: Mary Ellen is 37w1d here for PNV good FM 1+ edema. blood sugars copied. doing well. BR May 17 2021: Meghna is here for a PNV at 17 wks. Possible FM, unsure. No edema. Decreased n/v. No concerns expressed at this time. Does not want AFP/CF test. MK May 17 2021: 17 weeks, history of GDM a and now AMA. Will start ASA. For repeat section considering tubal ligation. For anatomy ultrasound next visit. JM Apr 17 2021: Meghna is here for PNV at 07/22. Genetic packet given. Having some slight issues with nausea, no vomiting. Has been wearing a motion sickness bractlet and seems to help. Also, shares that she is having problems with shortness of breath on exertion. Urine neg/neg. LSS Mar 19 2021: TELEHEALTH NOB-- Meghna is a 35 yo G 5 P 4 homemaker with MARILYN 10-24-21 planning a RCS w spinal at [facility] using Dr Layla Gamino for post disch ped care and to breastfeed. She is to Celestino who is a learning accounting support specialist at [facility]. They are pleased about the . Their children are 8, 6, 4. and 2 years old. Meghna is allergic to nickel and penicillins. She's Mar 14 2021: ok Mar 14 2021: Meghna presents here today for Missed Menses appointment. 35 y.o. G 5 P 4 non-smoker with regular menses and LMP of 01-17-21 lasting her average of 4-5 days. UPT is positive today in our Office. Denies spotting or bleeding thus far in . Presents at 8 weeks with an approximate MARILYN of 10-24-21. Reports having headache that lasted 3 days earlier this week, daily nausea and tender breasts REVIEW OF SYSTEMS: GENERAL - Denies fever, or chills SKIN - Denies rash, new skin lesions, or change in moles EYES - Denies blurred vision, or change in visual acuity EARS - Denies ear pain, or difficulty hearing NOSE - Denies nasal congestion, discharge, or bleeding MOUTH - Denies sore throat, or difficulty swallowing NECK - Denies pain or swelling RESPIRATORY - Denies shortness of breath, cough, wheezing CARDIOVASCULAR - Denies palpitations, chest pain, orthopnea, PND, peripheral edema, syncope or claudication GASTROINTESTINAL - Denies nausea, vomiting, diarrhea, constipation, Denies abdominal pain, melena and or bright red blood GENITOURINARY - Denies dysuria, frequency of urination, urgency, or hesitancy MUSCULOSKELETAL - Denies joint or muscle pain, or back pain NEUROLOGICAL - Denies localized numbness, weakness, or tingling PSYCHIATRIC - Denies depression, anxiety, substance abuse or suicide attempts ENDOCRINE - Denies heat or cold intolerance, weight loss or gain, increasing thirst HEMATO-IMMUNOLOGIC - Denies easy bruising, bleeding, oral ulcerations or recurrent infections GENETICS SCREENING: Age 35+ years: Yes Thalassemia: No Neural Tube Defect: No Down Syndrome: No DIONNE-SACHS: No Sickle Cell Disease: No Hemophilia: No Musc. Dystrophy: No Cystic Fibrosis: No-declines screening Mike Chorea: No Mental Retardation: No Fragile X: No Other genetic: No Other defects: No SABs/still births: No Drugs since LMP: No Comments: FOB has sister with Paredes's Syndrome INFECTION HISTORY: High risk AIDS: No High risk Hepatitis: No Exposed to TB: No Exposed to Herpes: No Rash/viral illness since LMP: No History of STD: No MENSTRUAL HISTORY: *Menses Amount/Duration: 6 daysMenses Regularity: RegularFrequency: monthlyMenarche (Age Onset): 14* PAST SUMMARY: PARITY: 1. Total Pregnancies............ 5 2. Full Term Pregnancies........ 4 3. Premature.................... 0 4. Abortions - Induced.......... 0 5. Abortions - Spontaneous...... 0 6. Ectopics..................... 0 7. Multiple Births.............. 0 8. Living Children.............. 4 PAST #1: Date of :.................. 07/04/12 Gestation Weeks:................ 39 Length of labor(hours):......... 16 Sex:............................ F Weight-lbs:............... 7 Weight-oz:................ 7 Type of Delivery:............... Vag Type of Anesthesia:............. Epidural Place of Delivery:.............. [place] Treatment of Labor?:.... No Comment: KARLA PAST #2: Date of :.................. 10/17/14 Gestation Weeks:................ 39 Length of labor(hours):......... 6 Sex:............................ M Weight-lbs:............... 8 Weight-oz:................ 0 Type of Delivery:............... Vag Type of Anesthesia:............. Epidural Place of Delivery:.............. [place] Treatment of Labor?:.... No Comment: JOHANNE PAST #3: Date of :.................. 10/27/16 Gestation Weeks:................ 40 Length of labor(hours):......... 2 Sex:............................ M Weight-lbs:............... 8 Weight-oz:................ 0 Type of Delivery:............... C-Sect Type of Anesthesia:............. General Place of Delivery:.............. [place] Treatment of Labor?:.... No Comment: CORD PROLAPSE PAST #4: Date of :.................. 09/27/18 Gestation Weeks:................ 39 Length of labor(hours):......... 0 Sex:............................ F Weight-lbs:............... 8 Weight-oz:................ 0 Type of Delivery:............... C-Sect Type of Anesthesia:............. Spinal Place of Delivery:.............. [place] Treatment of Labor?:.... No Comment: NO PHYSICAL EXAMINATION General Appearence: 36 yo female in no acute distress Vital Signs: AF, VSS Heart: RRR without rubs or gallops Lungs: CTA x 2 Breasts: deferred Abdomen: gravid Pelvis: Cervix: Presentation: cephalic Station: Fetus: Size: AGA Movement: present Heart: present LAB TEST(S) ORDERED SINCE:01/25/21 08/14/2021 GESTATIONAL GTT 3HR 100G 08/01/2021 GLUCOSE CHALLENGE GEST 1H 50G 08/01/2021 CBC-COMPLETE BLOOD CNT NO DIFF 03/19/2021 PAP IG W/REFLEX HR HPV APTIMA 03/18/2021 CHLAMYDIA/GC LUCY APTIMA 03/15/2021 RUBELLA IGG 03/15/2021 L509.8000 03/15/2021 HIV - WC 03/15/2021 HEPATITIS C ANTIBODY 03/15/2021 HEPATITIS B SURFACE ANTIGEN 03/14/2021 URINALYSIS, ROUTINE (DIPSTICK) 03/14/2021 THYROID STIM HORMONE (TSH) 03/14/2021 T AND S-NO CHARGE W/PNP 03/14/2021 CBC W/DIFF, AUTOMATED 10/15/2021 TYPE AND SCREEN 10/15/2021 COVID 19 AG RAPID (RN COLLECT) 10/15/2021 CBC W/DIFF, AUTOMATED 10/15/2021 BEDSIDE GLUCOSE 09/30/2021 RULE OUT BETA STREP (GRP. B) == ==== Order Observation Description Value Ref_Range A* Site == ==== BEDSIDE GLUCOSE NOTE [facility] BEDSIDE GLUCOSE FINGERSTICK GLU 86 mg/dL 70-110 POCL MANAGEMENT OF PATIENT CARE PER NURSING PROTOCOL S [facility]~[address], [address]~ TYPE AND SCRE AB SCREEN GEL NEGATIVE ML COVID 19 AG RAP NOTE [facility] CBC W/DIFF, AUT NOTE [facility] CBC W/DIFF, AUT WBC 5.8 K/mm3 4.4-11.0 ML CBC W/DIFF, AUT RBC 3.89 M/mm3 4.2-5.4 L ML CBC W/DIFF, AUT HGB 10.9 g/dL 12.0-15.0 L ML CBC W/DIFF, AUT HCT 32.6 37-47 L ML CBC W/DIFF, AUT MCV 83.8 fL 81-99 ML CBC W/DIFF, AUT MCH 28.0 pg 27.0-32.0 ML CBC W/DIFF, AUT MCHC 33.4 g/dL 32-36 ML CBC W/DIFF, AUT RDW CV 15.8 11.6-14.6 H ML CBC W/DIFF, AUT RDW SD 47.4 fl 35.1-43.9 H ML CBC W/DIFF, AUT PLT 158 K/mm3 150-450 ML CBC W/DIFF, AUT MPV 10.9 fl 6.2-12.0 ML CBC W/DIFF, AUT NEUT% 63.5 47-70 ML CBC W/DIFF, AUT LY% 25.3 19-41 ML CBC W/DIFF, AUT MONO% 8.8 0-10 ML CBC W/DIFF, AUT EO% 1.4 0-5 ML CBC W/DIFF, AUT BASO% 0.5 0-1 ML CBC W/DIFF, AUT IG% 0.500 0.0-0.9 ML IG% - Immature Granulocytes (promyelocytes, myelocytes and metamyelocytes) > 1% indicates that a LEFT SHIFT is Present. CBC W/DIFF, AUT ABSOLUTE NEUT 3.7 X10 3/uL 2.0-7.7 ML CBC W/DIFF, AUT ABSOLUTE LYMPH 1.47 X10 3/uL 0.83-4.51 ML CBC W/DIFF, AUT NUCLEATED RBC 0 0-5 ML RULE OUT BETA S NOTE [facility] GESTATIONAL GTT NOTE [facility] GESTATIONAL GTT 3HR GTT- GEST. MG/DL H ML FASTING 81 Col: 08/14/21 0849 GLUCOSE TOLERANCE TEST FOR Reference Interval GESTATIONAL DIABETES Fasting <105 mg/dL 1 hour <190 mg/dl 2 hour <165 mg/dl 3 hour <145 mg/dl 1 HR GLU 231 H Col: 08/14/21 0949 2 HR GLU 243 H Col: 08/14/21 1049 3 HR GLU 148 H Col: 08/14/21 1149 GLUCOSE CHALLEN NOTE [facility] GLUCOSE CHALLEN GLU GEST 50G 1H 188 mg/dL 70-140 H ML CBC-COMPLETE BL NOTE [facility] CBC-COMPLETE BL WBC 8.7 K/mm3 4.4-11.0 ML CBC-COMPLETE BL RBC 3.73 M/mm3 4.2-5.4 L ML CBC-COMPLETE BL HGB 10.4 g/dL 12.0-15.0 L ML CBC-COMPLETE BL HCT 33.1 37-47 L ML CBC-COMPLETE BL MCV 88.7 fL 81-99 ML CBC-COMPLETE BL MCH 27.9 pg 27.0-32.0 ML CBC-COMPLETE BL MCHC 31.4 g/dL 32-36 L ML CBC-COMPLETE BL RDW CV 13.6 11.6-14.6 ML CBC-COMPLETE BL RDW SD 44.2 fl 35.1-43.9 H ML CBC-COMPLETE BL PLT 178 K/mm3 150-450 ML CBC-COMPLETE BL MPV 10.3 fl 6.2-12.0 ML HEPATITIS C ANT NOTE [facility] HEPATITIS C ANT HEPATITIS C AB Non-Reactive Nonreactive ML Non Reactive: < 0.8 Equivocal: >/= 0.8 to < 1.0 Reactive: >/= 1.0 The CDC recommends that a reactive/equivocal HCV antibody result be followed up by the HCV Nucleic Acid Amplification test (469365) HEPATITIS B ELIZABETH NOTE [facility] HEPATITIS B ELIZABETH HEP B SURF AG Non-Reactive Nonreactive ML HIV - WC NOTE [facility] HIV - [facility] HIV Non-Reactive Nonreactive ML L509.8000 NOTE [facility] L509.8000 SYPHILIS ABS Non-reactive ML RUBELLA IGG NOTE [facility] RUBELLA IGG RUBELLA IGG Reactive Nonreactive ML Antibody Results Interpretation of Immune Status Non Reactive Presumed Non-Immune Equivocal Equivocal Reactive Presumed Immune PN N [facility]~[address] [place], [address]~ T AND AB SCREEN GEL NEGATIVE ML THYROID STIM HO NOTE [facility] THYROID STIM HO TSH 0.62 uIU/mL 0.358-3.74 ML URINALYSIS, ROU NOTE [facility] URINALYSIS, ROU COLOR Yellow Yellow ML URINALYSIS, ROU URINE CLARITY Sl. Cloudy Clear ML URINALYSIS, ROU GLUCOSE, UR Normal mg/dl Normal ML URINALYSIS, ROU BILIRUBIN URINE Negative mg/dL Negative ML URINALYSIS, ROU KETONE UR Negative mg/dl Negative ML URINALYSIS, ROU SP.GR. DIPSTX 1.020 1.002-1.030 ML URINALYSIS, ROU PH UR 6.0 5.0 - 8.0 ML URINALYSIS, ROU PROT DIPSTX Negative mg/dl Negative ML URINALYSIS, ROU UROBILI Normal mg/dl Normal ML URINALYSIS, ROU NITRITE Negative Negative ML URINALYSIS, ROU OCCULT BLOOD-UR Negative /ul Negative ML URINALYSIS, ROU LEUK ESTERASE Negative /ul Negative ML CBC W/DIFF, AUT NOTE [facility] CBC W/DIFF, AUT WBC 8.6 K/mm3 4.4-11.0 ML CBC W/DIFF, AUT RBC 4.58 M/mm3 4.2-5.4 ML CBC W/DIFF, AUT HGB 13.0 g/dL 12.0-15.0 ML CBC W/DIFF, AUT HCT 39.3 37-47 ML CBC W/DIFF, AUT MCV 85.8 fL 81-99 ML CBC W/DIFF, AUT MCH 28.4 pg 27.0-32.0 ML CBC W/DIFF, AUT MCHC 33.1 g/dL 32-36 ML CBC W/DIFF, AUT RDW CV 12.6 11.6-14.6 ML CBC W/DIFF, AUT RDW SD 39.3 fl 35.1-43.9 ML CBC W/DIFF, AUT PLT 195 K/mm3 150-450 ML CBC W/DIFF, AUT MPV 10.6 fl 6.2-12.0 ML CBC W/DIFF, AUT NEUT% 75.5 47-70 H ML CBC W/DIFF, AUT LY% 16.5 19-41 L ML CBC W/DIFF, AUT MONO% 6.4 0-10 ML CBC W/DIFF, AUT EO% 0.8 0-5 ML CBC W/DIFF, AUT BASO% 0.4 0-1 ML CBC W/DIFF, AUT IG% 0.400 0.0-0.9 ML IG% - Immature Granulocytes (promyelocytes, myelocytes and metamyelocytes) > 1% indicates that a LEFT SHIFT is Present. CBC W/DIFF, AUT ABSOLUTE NEUT 6.5 X10 3/uL 2.0-7.7 ML CBC W/DIFF, AUT ABSOLUTE LYMPH 1.41 X10 3/uL 0.83-4.51 ML CBC W/DIFF, AUT NUCLEATED RBC 0 0-5 ML PAP IG W/REFLEX NOTE [facility] PAP IG W/REFLEX DIAG Comment . [facility] NEGATIVE FOR INTRAEPITHELIAL LESION OR MALIGNANCY. PAP IG W/REFLEX ADEQ Comment . [facility] Satisfactory for evaluation. Endocervical and/or squamous metaplastic cells (endocervical component) are present. PAP IG W/REFLEX PERFORM Comment . [facility] Heidy Ren Air Traffic Coordinator (ASCP) This liquid based ThinPrep(R) pap test was screened with the use of an image guided system. PAP IG W/REFLEX COMM . . [facility] PAP IG W/REFLEX PAPSMR Comment . [facility] The Pap smear is a screening test designed to aid in the detection of premalignant and malignant conditions of the uterine cervix. It is not a diagnostic procedure and should not be used as the sole means of detecting cervical cancer. Both false-positive and false-negative reports do occur. PAP IG W/REFLEX HPV RFLX Comment . [facility] The HPV DNA reflex criteria were not met with this specimen result therefore, no HPV testing was performed. Performed at: [address], [place] [id number] Cuff Presser: Terrie Gomez MD, Phone: [phone] CHLAMYDIA/GC NA NOTE [facility] CHLAMYDIA/GC NA CHLAMY,NUC ACID Negative Negative [facility] CHLAMYDIA/GC NA GC BY NUC ACID Negative Negative [facility] Performed at: [address], [place] [id number] Cuff Presser: Terrie Gomez MD, Phone: [phone] O POSITIVE *Negative results from patients with symptom onset beyond five days should be treated as presumptive and confirmed by a molecular assay if clinically necessary. Negative results should not be used as the sole basis for treatment or for patient management. COVID 19 AG RAPID (RN COLLECT) *Positive results do not differentiate between SARS-CoV and SARS-CoV-2. If differentation of the specific SARS virus is desired an additional sample and an additional order is required. COVID 19 AG RAPID (RN COLLECT) * This test has not been FDA cleared or approved; the test has been authorized by FDA under an Emergency Use Authorization (EAU) for use by laboratories certified under CLIA that meet the requirements to perform moderate, high, or waived complexity tests. COVID 19 AG RAPID (RN COLLECT) Normal Reference Range: Negative SARS-CoV-2 (COVID 19) Negative RAPID METHOD Quidel Yenny Analyzer REIBERTO Streptococcus agalactiae (B) Amount Growth Growth Streptococcus agalactiae (B): REACTION Ampicillin <=0.25 Penicillin G <=0.06 S Ceftriaxone <=0.12 S Clindamycin <=0.25 S Clindamycin.induced NEG Linezolid <=2 S Vancomycin 0.5 S O POSITIVE == ==== Impression /Plan: 39 wks + 0 days intrauterine for repeat and tubal. Preparations in progress for delivery.
--- NOTE | 2021-10-15 08:35 | OP.PCM_ITS ---
Maternal Data Information Final MARILYN: 10/22/21 Gestational age: 39w gestation Details Operative Information Date of Procedure: 10/15/21 Pre-Operative Diagnosis: Prior Section and Desires Sterilization Post-Operative Diagnosis: Prior Section and Desires Sterilization Classification: Scheduled Procedure Type: low transverse (With Bilateral Salpingectomy) production control scheduler #1: Aditya Wilson Anesthesiologist: Keith Thayer Antibiotic Given: Ancef 2 grams IV x1 Drain: Russell to straight drain Estimated Blood Loss: 500 cc Fluids Replaced: Crystalloid Findings Description of Procedure: Surgeon: Prince Adams MD, FACOG Procedure: Repeat Low Transverse Cervical Caesarean Section And Bilateral Salpingectomy Findings: Viable female infant with Apgars of 9/9 in occiput anterior presentation with clear amniotic fluid and normal three-vessel placenta. Indication: This is a 36-year-old who presents for her third at 39 weeks gestation. care has otherwise been uneventful. The patient has been counseled regarding the risk and indications of this procedure including the possibility of bleeding infection and injury to surrounding structures such as bowel bladder. She also understands the permanent nature of her tubal, the availability of other nonpermanent control options, and the failure rate of 1 to 2%. All questions were answered. Procedure: Patient was taken to the operating room where after spinal anesthesia was placed, the patient was prepped and draped in usual sterile fashion and a Russell catheter was placed. The abdomen was entered through the patient's prior Pfannenstiel incision and peritoneum was entered bluntly. After developing a bl adder flap on the lower uterine segment a low transverse incision was made on the uterus and head was easily delivered onto the operative field the nose mouth and oropharynx were bulb suctioned. Subsequently a viable female infant was born with Apgars of 9/9. The infant was noted to cry move all extremities vigorously on the operative field. The umbilical cord was doubly clamped and ligated and handed to the nursery personnel who were present for the delivery. Placenta was delivered and noted to be 3 vessels and normal. Uterus was exteriorized and remaining placental tissue was removed. The uterus was then closed in 2 layers first with running locked 0 Vicryl suture followed by a second imbricating layer with 0 Vicryl suture. 0 Vicryl suture was then used in a horizontal mattress interrupted fashion to affect final hemostasis of the uterine incision line. Normal fallopian tubes and ovaries were visualized and fallopian tubes were identified to the fimbriated end. Mesosalpinx was ligated with the LigaSure device to the uterus and hemostasis noted. The uterus was returned to the pelvis. Hemostasis was noted and rectus abdominis muscles were reapproximated in the midline with interrupted Number 0 Vicryl suture in a horizontal mattress fashion. Fascia was closed with running Number 1 PDS Strata fix suture. Subcutaneous tissue was irrigated with copious amounts of saline solution and then closed with running 3-0 Vicryl suture. Skin was closed with 4-0 monocryl suture in a running subcuticular fashion. Steri strips and a Mepilex dressing were placed across the incision. The patient tolerated the procedure well and was taken to the recovery room in satisfactory condition. Sponge, needle, and instrument counts were all reportedly correct. EBL was 500 cc cc. Ancef 2 gms IV was given prior to the procedure. Spicemen to Pathology: None Presentation: Positive for Vertex Amniotic Fluid Description: Clear Placental Delivery Description: Spontaneous Placenta Disposition: [facility] Specimen(s) Sent to Pathology: Bilateral fallopian tubes Cord Vessel Description: 3 Vessels Cord Entanglement: Around neck x 2, loose A Gender: Female (1 minute): 9 (5 minute): 9 Complications Risks of Surgery Discussed w/Patient: Bleeding, Infection, Permanency, Failure Rate of 1 to 2%, Injury to surrounding structure(s) including bowel and bladder and Availability of other non-permanent control options Complications: None
[2021-10-15] MEDS: Oxytocin 30 units/NS 500 ml 30 UNITS/500 ML IV.SOLN 167 UNITS IV (08:55)
[2021-10-15] MEDS: Ketorolac 30 MG/ML Syringe IV ×3 (09:00→21:11)
[2021-10-15 09:29] LABS: Pathology Specimen OB SEE PATHOLOGY REPORT
[2021-10-15 09:41] LABS: Bedside Glucose 96 mg/dL (70-110)
[2021-10-15] MEDS: Lactated Ringers 1,000 ML 100 ML IV (11:58)
[2021-10-15] MEDS: Ondansetron 4 MG/2 ML Vial IV (14:59)
[2021-10-15] MEDS: Cefazolin 1 GM/50 ML BAG IV ×2 (15:07→23:35)
[2021-10-15] MEDS: 0.9% Saline Lock 10 ML Syringe IV ×2 (21:12→23:35)
[2021-10-16] MEDS: Ketorolac 30 MG/ML Syringe IV (03:03)
[2021-10-16] MEDS: 0.9% Saline Lock 10 ML Syringe IV (03:03)
[2021-10-16 03:11] VITALS: BP 96/50; PULSE 79; RESP 16; TEMP 36; O2SAT 96
[2021-10-16] MEDS: Acetaminophen 500 MG Tablet 1000 MG PO ×4 (06:07→23:58)
[2021-10-16 06:23] LABS: Hematocrit 28.7 % (37-47); Hemoglobin 9.4 g/dL (12.0-15.0); Mean Corp Hgb Conc 32.8 g/dL (32-36); Mean Corpuscular Hgb 28.1 pg (27.0-32.0); Mean Corpuscular Volume 85.9 fL (81-99); Mean Platelet Vol. 10.6 fl (6.2-12.0); Platelet Count 119 K/mm3 (150-450); RBC Distribution Width CV 15.9 % (11.6-14.6); RBC Distribution Width SD 49.3 fl (35.1-43.9); Red Blood Count 3.34 M/mm3 (4.2-5.4); White Blood Count 8.4 K/mm3 (4.4-11.0)
[2021-10-16 06:25] LABS: Bedside Glucose 138 mg/dL (70-110)
[2021-10-16 08:15] VITALS: BP 102/60; PULSE 97; RESP 16; TEMP 36.2; O2SAT 98
--- NOTE | 2021-10-16 08:47 | PCM.PN.OB ---
Subjective Subjective No issues overnight. Feels well and pain controlled. OOB, ambulating and voiding without difficulty. Objective Data Objective Data Vital Signs: Vital Signs Temp Pulse Resp BP Pulse Ox 97.2 F L 97 16 102/60 98 10/16/21 08:15 10/16/21 08:15 10/16/21 08:15 10/16/21 08:15 10/16/21 08:15 Oxygen Delivery Method Room Air Weight: 71.577 kg Body Mass Index (BMI) 26.2 Intake & Output: Intake and Output for Last 24 Hours 10/14/21 10/15/21 10/16/21 23:59 23:59 23:59 Intake Total 2463.33 / 2513.33 50 / 50 Output Total 1650 / 1650 Balance 813.33 / 863.33 50 / 50 Lab / Micro Data Result Diagrams: 10/16/21 06:18 Labs: Laboratory Results - last 24 hr 10/15/21 09:35: POC Glucose 96 10/16/21 06:10: POC Glucose 138 H 10/16/21 06:18: WBC 8.4, RBC 3.34 L, Hgb 9.4 L, Hct 28.7 L, MCV 85.9, MCH 28.1, MCHC 32.8, RDW Std Deviation 49.3 H, RDW Coeff of Gabriella 15.9 H, Plt Count 119 L, MPV 10.6 Micro: Microbiology 10/15/21 05:30 Nasal Secretion SARS-CoV-2 Antigen (Rapid) - Final Physical Exam Const alert, oriented x3 and no apparent distress Resp normal respiratory effort, normal air movement and clear to auscultation bilaterally Cardio regular rate, regular rhythm, S1 normal heart sound and S2 normal heart sound GI normal to inspection, nondistended, normoactive bowel sounds, soft to palpation, non-tender and non-distended GI Narrative: incisional dressing c/d/i Manual OB Exam: other lochia scant Uterus Palpation: uterus fundus firm Extremity no calf tenderness Assessment & Plan (1) delivery delivered: PLAN: Rh positive Routine postop care (2) Gestational diabetes: QUALIFIERS: Gestational diabetes mellitus control: diet-controlled Trimester: third trimester Qualified Code(s): O24.410 - Gestational diabetes mellitus in , diet controlled PLAN: fasting glucose 138 Unusual given well controlled GDM with diet, ?contamination Will repeat in am
[2021-10-16] MEDS: Ibuprofen 600 MG Tablet PO ×3 (10:06→22:06)
[2021-10-16] MEDS: Senna/Docusate Sodium 1 Tablet PO (10:07)
[2021-10-16 16:23] VITALS: BP 118/71; PULSE 94; RESP 16; TEMP 36.2; O2SAT 95
[2021-10-16] MEDS: oxyCODONE 5 MG Tablet PO (18:10)
[2021-10-16 20:00] VITALS: BP 127/77; PULSE 94; RESP 16; TEMP 35.9; O2SAT 97
[2021-10-17 02:36] VITALS: BP 111/74; PULSE 83; RESP 18; TEMP 36.2; O2SAT 97
[2021-10-17] MEDS: Ibuprofen 600 MG Tablet PO ×2 (04:46→09:48)
[2021-10-17] MEDS: Acetaminophen 500 MG Tablet 1000 MG PO (06:42)
[2021-10-17 06:56] LABS: Bedside Glucose 74 mg/dL (74-106)
--- NOTE | 2021-10-17 07:31 | PCM.PN.OB ---
Subjective Subjective Postop day 2. Pain well controlled. Feeding well. Lochia minimal. Objective Data Objective Data Vital Signs: Vital Signs Temp Pulse Resp BP Pulse Ox 97.1 F L 83 18 111/74 97 10/17/21 02:36 10/17/21 02:36 10/17/21 02:36 10/17/21 02:36 10/17/21 02:36 Oxygen Delivery Method Room Air Weight: 71.577 kg Body Mass Index (BMI) 26.2 Intake & Output: Intake and Output for Last 24 Hours 10/15/21 10/16/21 10/17/21 23:59 23:59 23:59 Intake Total 2463.33 / 2513.33 50 / 50 Output Total 1650 / 1650 Balance 813.33 / 863.33 50 / 50 Lab / Micro Data Result Diagrams: 10/16/21 06:18 Labs: Laboratory Results - last 24 hr 10/17/21 06:45: POC Glucose 74 Micro: Microbiology 10/15/21 05:30 Nasal Secretion SARS-CoV-2 Antigen (Rapid) - Final Physical Exam Const alert, oriented x3 and no apparent distress HEENT normocephalic Head and Scalp: atraumatic Resp normal respiratory effort Cardio regular rate GI normal to inspection, nondistended, normoactive bowel sounds GI Narrative: Dressing clean and dry. Uterus 2 cm below umbilicus. Extremity no pedal edema Psych mental status grossly normal and affect normal Assessment & Plan (1) delivery delivered: PLAN: Postop day 2 status post repeat section and bilateral tubal ligation. GDM A1: Fasting glucose this morning 74. Plan for 2-hour glucose tolerance test after 6-week visit. Discussed wound care and follow-up plan. Discharge home today with 2-week postoperative visit in 6-week visit. (2) Gestational diabetes: QUALIFIERS: Gestational diabetes mellitus control: diet-controlled Trimester: third trimester Qualified Code(s): O24.410 - Gestational diabetes mellitus in , diet controlled
--- NOTE | 2021-10-17 07:32 | PCM.DC ---
Discharge Instructions Diet Discharge Diet: No restrictions Activity Discharge Activity: Return to Normal Activity and May Shower May resume sexual activity in: 4-6 weeks Weight Bearing Status: Weight bearing as tolerated Dressing / Incision Call your doctor if your incision/area has: Continuous Slow Oozing, Sudden Increased Bleeding, Increased Redness, Foul Smelling Discharge and Swelling at the incision site Call your doctor if you observe: Fever of 101 or Higher, Using more than 1 pad per hour, Shortness of breath, Dizziness, Fainting spells and Chest pain Remove Dressing in: 5 days Cleanse incision/area with: Soap & Water Follow Up Care Please Follow Up With: Prince Adams MD When: 2 week post operative visit, 6 week Test Results: Test results from this visit will be discussed in further detail at your follow-up appointment, if applicable. Discharge Plan Admission Admit Date/Time: 10/15/21 05:10 Primary Reason for Your Visit: Repeat section and tubal ligation Attending Provider: Prince Adams Primary Care Provider: Care Physician,No Primary Discharge Orders/Prescriptions Prescriptions: New oxycodone 5 mg Tablet 5 mg PO Q6H PRN (Reason: pain) 4 Days Qty: 10 RF: 0 Continued Prenatabs FA 1 TABLET tablet 1 tab PO DAILY RF: 0 docusate sodium 100 MG capsule 100 mg PO DAILY PRN PRN (Reason: Constipation) Qty: 60 RF: 1 Referrals / Follow Up: Care Physician,No Primary [Primary Care Provider] - Disposition Disposition (needs filled in before D/C Order can be placed): Home, Self Care
[2021-10-17 08:00] VITALS: BP 106/70; PULSE 90; RESP 14; TEMP 35.9; O2SAT 99
[2021-10-17] MEDS: Senna/Docusate Sodium 1 Tablet PO (09:48)
== END 2021-10-17 11:00 | disposition home or self-care (01) | DRG 785 ==
PROVIDERS: Admitting Provider Obstetrics & Gynecology; Referring Provider Obstetrics & Gynecology; Visit Provider Obstetrics & Gynecology
PROC: 10D00Z1 Extraction of Products of Conception, Low, Open Approach (ICD-10-PCS; CPT 59514; principal; 2021-10-15 07:15)
DX: O34.219 Maternal care for unspecified type scar from previous cesarean delivery (principal); O24.420 Gestational diabetes mellitus in childbirth, diet controlled; Z37.0 Single live birth; Z3A.39 39 weeks gestation of pregnancy; Z30.2 Encounter for sterilization; O69.81X0 Labor and delivery complicated by cord around neck, without compression, not applicable or unspecified
CPT/HCPCS: 59050; 82962; 85025; 85027; 86850; 86900; 86901; 87426; 88302; 99218; J7120; A4216; G0378; J2405

== ENCOUNTER → 2022-04-08 | Outpatient (CLI) | payer OTHER, SELFPAY | END | disposition home or self-care (01) | LOC: LABSPEC 13:56 | PROVIDERS: Visit Provider Nurse Practitioner Family | DX: N39.0 Urinary tract infection, site not specified (principal) | CPT/HCPCS: 87086; 87088 ==

== ENCOUNTER → 2022-04-12 | Outpatient (CLI) | payer OTHER, SELFPAY ==
[2022-04-12 11:11] LABS: Bacteria 0 SEEN /hpf (None Seen); Mucous, Urine 0 SEEN /hpf (<or=2+); Red Blood Cells-Urine 0 SEEN /hpf (0-5); Squamous Epithelial Cells - UA 0 SEEN /hpf (5-10); White Blood Cells 0 SEEN /hpf (0-5)
[2022-04-12 11:28] LABS: Color, Urine Straw (Yellow); Glucose, Dipstick Normal (Normal); Ketone-Dipstick Negative (Negative); Leukocyte Esterase-Dipstick Negative /ul (Negative); Nitrite-Dipstick Negative (Negative); Occult Blood-Urine Negative /ul (Negative); Protein-Dipstick Negative (Negative); Specific Gravity, Urine 1.005 (1.002-1.030); Urine Bilirubin Dipstick Negative (Negative); Urine Clarity Clear (Clear); Urine Urobilinogen Normal (Normal)
== END | disposition home or self-care (01) ==
LOC: MTLAB 10:38 → LAB 10:38
PROVIDERS: PCP Family Medicine; Referring Provider Family Medicine; Visit Provider Family Medicine
DX: R31.9 Hematuria, unspecified (principal)
CPT/HCPCS: 36415; 81001

== ENCOUNTER → 2022-04-15 | Outpatient (CLI) | payer OTHER, SELFPAY ==
[2022-04-15 15:47] LABS: Mucous, Urine 0 SEEN /hpf (<or=2+)
[2022-04-15 17:26] LABS: Color, Urine Straw (Yellow); Glucose, Dipstick Normal (Normal); Ketone-Dipstick Negative (Negative); Leukocyte Esterase-Dipstick 25 /ul (Negative); Nitrite-Dipstick Negative (Negative); Occult Blood-Urine 10 /ul (Negative); Protein-Dipstick Negative (Negative); Urine Bilirubin Dipstick Negative (Negative); Urine Clarity Clear (Clear); Urine Urobilinogen Normal (Normal)
[2022-04-15 17:39] LABS: Bacteria RARE /hpf (None Seen); Red Blood Cells-Urine 0-5 SEEN /hpf (0-5); Squamous Epithelial Cells - UA 0-5 SEEN /hpf (5-10); White Blood Cells 0-5 SEEN /hpf (0-5)
== END | disposition home or self-care (01) ==
PROVIDERS: PCP Family Medicine; Referring Provider Nurse Practitioner Family; Visit Provider Nurse Practitioner Family
DX: R31.9 Hematuria, unspecified (principal)
CPT/HCPCS: 81001; 87086; 87088; 87101

== ENCOUNTER → 2022-06-09 | Outpatient (CLI) | payer OTHER, SELFPAY | END | disposition home or self-care (01) | LOC: LABSPEC 13:39 | PROVIDERS: PCP Family Medicine; Visit Provider Nurse Practitioner Family | DX: R39.89 Other symptoms and signs involving the genitourinary system (principal) | CPT/HCPCS: 87077; 87086; 87088; 87186 ==

== ENCOUNTER → 2024-07-11 | Outpatient (CLI) | payer OTHER, SELFPAY ==
[2024-07-21 14:10] LABS: HPV APTIMA, High Risk Negative (Negative)
== END | disposition home or self-care (01) ==
LOC: LABSPEC 17:18
PROVIDERS: PCP Family Medicine; Referring Provider Nurse Practitioner Family; Visit Provider Nurse Practitioner Family
DX: Z12.4 Encounter for screening for malignant neoplasm of cervix (principal)
CPT/HCPCS: 87624; 88175; G0145

== ENCOUNTER → 2024-07-28 | Outpatient (CLI) | payer OTHER, SELFPAY ==
--- NOTE | 2024-07-28 13:00 | BI_ITS ---
MAMMOGRAPHY - BILATERAL SCREENING REASON FOR EXAM: Female, 38 years old. Routine annual screening examination. PERTINENT HISTORY: Non-contributory. TECHNIQUE: Digital bilateral breast aviva (3D mammographic acquisition) in the CC and MLO projections. 2-D mediolateral oblique (MLO) and craniocaudad (CC) views of both breasts were obtained. CAD: Full Field Digital Mammography with Computer Added Detection was performed. COMPARISON: Comparison is made with prior study dated November 17, 2019. FINDINGS: Breast Composition: The breasts are extremely dense, which lowers the sensitivity of mammography. There are no dominant masses or suspicious calcifications. No other significant abnormalities are identified. There has been no significant change since the prior study. BI/SCRN MAMM (CAD)W/AVIVA BILAT IMPRESSION: Stable bilateral screening mammogram. Yearly follow-up mammogram recommended. (A) ASSESSMENT CATEGORY: BIRADS Category 1: Negative. A letter regarding these results will be sent to the patient by the facility within 30 days. Approximately 10% of breast cancers are not detected by mammography. A normal mammogram should not delay biopsy of a clinically suspicious abnormality. [id number] Electronically Signed: Luciano Mayer MD at 13:30 EST ,
--- NOTE | 2024-07-28 13:00 | US_ITS ---
STUDY: ULTRASOUND OF THE FEMALE PELVIS - COMPLETE REASON FOR EXAM: Female, 38 years old. abnormal uterine bleeding LMP: 07/28/2024 TECHNIQUE: Transabdominal and Transvaginal TECHNICAL QUALITY: Adequate. COMPARISON: None. FINDINGS: The uterus is anteverted and is in a midline position. The uterus measures 9.0 x 7.2 x 5.5 cm. Normal uterine cervix. The endometrium measures 5 mm in thickness, and is hyperechoic. There is no demonstrated endometrial mass. There is no demonstrated myometrial mass. I.U.D. - The patient does not have an I.U.D. Status post right oophorectomy.. The left ovary is visualized. The left ovary measures 3.2 x 1.8 x 1.8 cm. There is no left ovarian cyst or ovarian mass. There is no visualized left adnexal mass or complex lesion. There is normal arterial and normal venous vascularity. There is no fluid in the cul-de-sac. The pre void volume of the bladder was 477 ml. The post void volume of the bladder was ml. Polycystic ovary disease: No. US/Pelvic w/ Transvaginal IMPRESSION: Normal female pelvis after right oophorectomy. Electronically Signed: Daljit Fernandes MD at 9:53 EST ,
[2024-07-28 14:41] LABS: Absolute Lymphocyte Count 1.48 X10^3/uL (0.83-4.51); Absolute Neutrophil Count 3.9 X10^3/uL (2.0-7.7); Basophil# 0.04 X10^3/uL; Basophil% 0.7 % (0-1); Eosinophil# 0.17 X10^3/uL; Eosinophils% 2.8 % (0-5); Hematocrit 42.4 % (37-47); Lymphocyte # 1.48 X10^3/ul (0.83-4.51); Lymphocyte % 24.3 % (19-41); Mean Corpuscular Hgb 28.2 pg (27.0-32.0); Mean Corpuscular Volume 85.3 fL (81-99); Mean Platelet Vol. 10.2 fl (6.2-12.0); Monocyte# 0.48 X10^3/uL; Monocyte% 7.9 % (0-10); NRBC Flagged by Analyzer 0 % (0-5); Neutrophil # 3.88 X10^3/uL (2.7-7.7); Neutrophil % 63.8 % (47-70); Platelet Count 230 K/mm3 (150-450); RBC Distribution Width CV 13.6 % (11.6-14.6); RBC Distribution Width SD 42.1 fl (35.1-43.9); Red Blood Count 4.97 M/mm3 (4.2-5.4); White Blood Count 6.1 K/mm3 (4.4-11.0)
[2024-07-28 15:12] LABS: Vitamin B12 714 pg/mL (211-911)
[2024-07-28 15:20] LABS: ALB/GLOB Ratio 0.9 RATIO (0.9-2.4); AST(SGOT) 16 U/L (15-37); Alanine Aminotransfer ALT/SGPT 20 U/L (13-56); Albumin, Serum 3.5 g/dL (3.2-5.0); Alkaline Phosphatase 67 U/L (45-117); Anion Gap 6 (5-15); BUN 14 mg/dL (7-18); BUN/Creat Ratio 18.1 RATIO (10-20); Calcium,Total 8.8 mg/dL (8.5-10.1); Chloride 105 mmol/L (98-107); Creatinine, Serum 0.77 mg/dL (0.55-1.02); EST Glomerular Filtration Rate 88 mL/min (>60); Est Glom Filt Rate - Afr Amer 107 mL/min (>60); Free T3 2.8 pg/mL (2.18-3.98); Globulin 4.1 g/dL (2.2-4.2); Glucose 114 mg/dL (74-106); Potassium 3.9 mmol/L (3.5-5.1); Protein, Total 7.6 g/dL (6.4-8.2); Sodium Level 138 mmol/L (136-145); T4 Free Direct 1.12 ng/dL (0.76-1.46)
== END | disposition home or self-care (01) ==
PROVIDERS: PCP Family Medicine; Referring Provider Nurse Practitioner Family; Visit Provider Nurse Practitioner Family
DX: Z12.31 Encounter for screening mammogram for malignant neoplasm of breast (principal); N93.9 Abnormal uterine and vaginal bleeding, unspecified
CPT/HCPCS: 36415; 76830; 76856; 77063; 77067; 80053; 82607; 84439; 84443; 84481; 85025